=== PATIENT | male | born 1950 | race Caucasian/White ===

== ENCOUNTER 2017-05-30 20:20 | Inpatient (IN) | payer MEDICARE ==
[2017-05-30] MEDS: methylPREDNISolone Sodium Succinate 125 MG/2 ML SDV IVPUSH ONE ×2 (20:20→22:28)
[2017-05-30] MEDS: Albuterol/Ipratropium 3.0-0.5 MG/3 ML Neb Soln NEB SCH ×2 (20:20→22:28)
[2017-05-30] MEDS: Sodium Chloride 0.9% 1,000 ML IV ONE ×2 (20:20→22:29)
[2017-05-30] MEDS ORDERED: Albuterol 0.083% 2.5 MG/3 ML Neb Soln NEB PRN (20:28)
--- NOTE | 2017-05-30 20:34 | EDM.PDOC ---
ED HPI GENERAL MEDICAL PROBLEM - General Chief Complaint: Respiratory Problem Stated Complaint: shortness of breath Time Seen by Provider: 05/30/17 20:20 Source of Information: Reports: Patient, RN History Limitations: Reports: Respiratory Distress - History of Present Illness INITIAL COMMENTS - FREE TEXT/NARRATIVE: 67 yr male presents with shortness of breath. 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 - Related Data Allergies Allergy/AdvReac Type Severity Reaction Status Date / Time No Known Allergies Allergy Verified 05/30/17 22:28 Home Meds: Home Meds Aspirin [Halfprin] 81 mg PO DAILY 05/30/17 [History] Benazepril/Hydrochlorothiazide [Benazepril-HCTZ 20-12.5 MG Tablet] 1 tab PO BID 05/30/17 [History] Bosentan [Tracleer] 125 mg PO BID 05/30/17 [History] Glimepiride [Amaryl] 1 mg PO BID 05/30/17 [History] Iloprost Tromethamine [Ventavis] 1 ampule INH 6XDAY 05/30/17 [History] Metoprolol Tartrate [Lopressor] 50 mg PO BID 05/30/17 [History] Sildenafil [Revatio] 20 mg PO TID 05/30/17 [History] Simvastatin [Zocor] 40 mg PO DAILY 05/30/17 [History] Warfarin [Coumadin] 2.5 mg PO DAILY 05/30/17 [History] amLODIPine [Norvasc] 10 mg PO DAILY 05/30/17 [History] metFORMIN [Glucophage] 1,000 mg PO DAILY 05/30/17 [History] metFORMIN [Glucophage] 500 mg PO 1200 05/30/17 [History] ED ROS GENERAL - Review of Systems Review Of Systems: See Below Constitutional: Reports: Weakness HEENT: Reports: No Symptoms Respiratory: Reports: Shortness of Breath Cardiovascular: Reports: Dyspnea on Exertion GI/Abdominal: Reports: No Symptoms Musculoskeletal: Reports: No Symptoms Neurological: Reports: Trouble Speaking, Difficulty Walking Psychiatric: Reports: Anxiety ED EXAM, GENERAL - Physical Exam Exam: See Below Exam Limited By: Respiratory Distress General Appearance: Alert, Severe Distress Nose: Normal Inspection Throat/Mouth: Normal Lips Head: Atraumatic Neck: Supple, Non-Tender Respiratory/Chest: Respiratory Distress, Decreased Breath Sounds, Crackles Cardiovascular: Normal Peripheral Pulses, No Edema Peripheral Pulses: 2+: Dorsalis Pedis (L), Dorsalis Pedis (R) GI/Abdominal: Soft, Non-Tender Back Exam: Normal Inspection Extremities: Normal Inspection, No Pedal Edema, Normal Capillary Refill Neurological: Alert Skin Exam: Warm, Dry Lymphatic: No Adenopathy Course - Vital Signs Last Recorded V/S: Last Vital Signs Temp 97.9 F 05/31/17 06:12 Pulse 74 05/31/17 08:28 Resp 21 H 05/31/17 06:12 BP 151/75 H 05/31/17 08:30 Pulse Ox 99 05/31/17 06:12 - Orders/Labs/Meds Orders: Active Orders 24 hr Category Date Time Status CULTURE BLOOD [BC] Urgent Lab 05/30/17 20:30 Received Albuterol [Proventil Neb Soln] Med 05/30/17 20:28 Active 2.5 mg NEB Q2H PRN Resuscitation Status Routine Resus Stat 05/30/17 20:25 Ordered Medication Orders Albuterol (Proventil Neb Soln) 2.5 mg NEB Q2H PRN PRN Reason: Shortness of Breath Last Admin: 05/30/17 20:45 Dose: 2.5 mg Albuterol/Ipratropium (Duoneb 3.0-0.5 Mg/3 Ml) 3 ml NEB Q4H PRN PRN Reason: Dyspnea Amlodipine Besylate (Norvasc) 10 mg PO DAILY [facility] Last Admin: 05/31/17 08:30 Dose: 10 mg Aspirin (Halfprin) 81 mg PO DAILY [facility] Last Admin: 05/31/17 08:28 Dose: 81 mg Benazepril HCl (Lotensin) 20 mg PO BID [facility] Last Admin: 05/31/17 08:29 Dose: 20 mg Glimepiride (Glimepiride) 1 mg PO BIDMEALS [facility] Last Admin: 05/31/17 08:28 Dose: 1 mg Hydrochlorothiazide (Hydrochlorothiazide) 12.5 mg PO BID [facility] Last Admin: 05/31/17 08:27 Dose: 12.5 mg Sodium Chloride (Normal Saline) 1,000 mls @ 125 mls/hr IV ASDIRECTED [facility] Last Admin: 05/31/17 06:05 Dose: 125 mls/hr Levofloxacin/Dextrose (Levaquin In D5w 250 Mg/50 Ml) 50 mls @ 50 mls/hr IV DAILY [facility] Metformin HCl (Glucophage) 500 mg PO 1200 [facility] Metformin HCl (Glucophage) 1,000 mg PO DAILY [facility] Last Admin: 05/31/17 08:28 Dose: 1,000 mg Methylprednisolone Sodium Succinate (Solu-Medrol) 60 mg IVPUSH Q6H [facility] Last Admin: 05/31/17 04:25 Dose: 60 mg Metoprolol Tartrate (Lopressor) 50 mg PO BID [facility] Last Admin: 05/31/17 08:28 Dose: 50 mg Non-Formulary Medication (Bosentan [Tracleer]) 125 mg PO BID [facility] Last Admin: 05/31/17 08:48 Dose: 125 mg (Iloprost Tromethamine [ Ventavis] 1 Ampule) 1 ampule INH 07,10,13,16,19,22 [facility] Last Admin: 05/31/17 08:51 Dose: 1 ampule Sildenafil Citrate (Revatio) 20 mg PO TID [facility] Last Admin: 05/31/17 08:47 Dose: 20 mg Simvastatin (Zocor) 40 mg PO BEDTIME [facility] Sodium Chloride (Saline Flush) 10 ml FLUSH BID [facility] Last Admin: 05/31/17 08:43 Dose: Not Given Warfarin Sodium (Coumadin) 2.5 mg PO 1800 [facility] Labs: Laboratory Tests 05/30/17 05/30/17 05/30/17 Range/Units 20:30 20:30 20:54 WBC 17.1 H D (4.0-11.0) K/uL RBC 4.46 L (4.50-6.50) M/uL Hgb 14.8 (13.0-18.0) g/dL Hct 43.8 (40.0-54.0) % MCV 90 (76-96) fL MCH 30.5 (27.0-32.0) pg MCHC 33.8 (31.0-35.0) g/dL RDW 14.6 (11.0-16.0) % Plt Count 237 D (150-400) K/uL MPV 9.7 (6.0-10.0) fL Neut % (Auto) 89.7 H (45.0-70.0) % Lymph % (Auto) 5.0 L (20.0-40.0) % [place] % (Auto) 4.0 (3.0-10.0) % Eos % (Auto) 0.9 L (1.0-5.0) % Baso % (Auto) 0.4 (0.0-0.5) % Neut # (Auto) 15.38 H (2.00-7.50) K/uL Lymph # (Auto) 0.85 L (1.50-4.00) K/uL [place] # (Auto) 0.69 (0.20-0.80) K/uL Eos # (Auto) 0.16 (0.04-0.40) K/uL Baso # (Auto) 0.06 (0.02-0.10) K/uL Sodium 140 (136-145) mmol/L Potassium 4.6 (3.5-5.1) mmol/L Chloride 105 (98-107) mmol/L Carbon Dioxide 21.9 D (21.0-32.0) mmol/L Anion Gap 17.7 H (5.0-15.0) mmol/L BUN 24 (8-26) mg/dL Creatinine 1.49 H (0.70-1.30) mg/dL Est Cr Clr Drug Dosing TNP Estimated GFR (MDRD) 47 L (>60) MLS/MIN BUN/Creatinine Ratio 16.1 (6-25) Glucose 172 H D (74-100) mg/dL Calcium 9.0 (8.5-10.1) mg/dL Total Bilirubin 0.4 D (0.0-1.0) mg/dL AST 12 L (15-37) U/L ALT 17 (12-78) U/L Alkaline Phosphatase 69 (46-116) U/L B-Natriuretic Peptide 153 H (0-125) pg/mL Total Protein 7.4 (6.4-8.2) g/dL Albumin 4.0 (3.4-5.0) g/dL Globulin 3.4 (2.2-4.2) g/dL Albumin/Globulin Ratio 1.2 (0.8-2.0) Meds: Medications Generic Name Dose Route Start Last Admin Trade Name Freq PRN Reason Stop Dose Admin Albuterol 2.5 mg 05/30/17 20:28 05/30/17 20:45 Proventil Neb Soln NEB 2.5 mg Q2H PRN Administration Shortness of Breath Albuterol/Ipratropium 3 ml 05/31/17 05:23 Duoneb 3.0-0.5 Mg/3 Ml NEB Q4H PRN Dyspnea Amlodipine Besylate 10 mg 05/31/17 08:00 05/31/17 08:30 Norvasc PO 10 mg DAILY [facility] Administration Aspirin 81 mg 05/31/17 08:00 05/31/17 08:28 Halfprin PO 81 mg DAILY [facility] Administration Benazepril HCl 20 mg 05/31/17 08:00 05/31/17 08:29 Lotensin PO 20 mg BID [facility] Administration Glimepiride 1 mg 05/31/17 08:00 05/31/17 08:28 Glimepiride PO 1 mg BIDMEALS [facility] Administration Hydrochlorothiazide 12.5 mg 05/31/17 08:00 05/31/17 08:27 Hydrochlorothiazide PO 12.5 mg BID [facility] Administration Sodium Chloride 1,000 mls @ 125 mls/hr 05/31/17 05:00 05/31/17 06:05 Normal Saline IV 125 mls/hr ASDIRECTED [facility] Administration Levofloxacin/Dextrose 50 mls @ 50 mls/hr 06/01/17 08:00 Levaquin In D5w 250 Mg/50 Ml IV DAILY [facility] Metformin HCl 500 mg 05/31/17 12:00 Glucophage PO 1200 [facility] Metformin HCl 1,000 mg 05/31/17 08:00 05/31/17 08:28 Glucophage PO 1,000 mg DAILY [facility] Administration Methylprednisolone Sodium Succinate 60 mg 05/31/17 04:00 05/31/17 04:25 Solu-Medrol IVPUSH 60 mg Q6H [facility] Administration Metoprolol Tartrate 50 mg 05/31/17 08:00 05/31/17 08:28 Lopressor PO 50 mg BID [facility] Administration Non-Formulary Medication 125 mg 05/31/17 08:00 05/31/17 08:48 Bosentan [Tracleer] PO 125 mg BID [facility] Administration (Iloprost 1 ampule 05/31/17 07:00 05/31/17 08:51 Tromethamine [ INH 1 ampule Ventavis] 1 Ampule) 07,10,13,16,19,22 [facility] Administration Sildenafil Citrate 20 mg 05/31/17 08:00 05/31/17 08:47 Revatio PO 20 mg TID [facility] Administration Simvastatin 40 mg 05/31/17 20:00 Zocor PO BEDTIME [facility] Sodium Chloride 10 ml 05/31/17 08:00 05/31/17 08:43 Saline Flush FLUSH Not Given BID [facility] Warfarin Sodium 2.5 mg 05/31/17 18:00 Coumadin PO 1800 [facility] Discontinued Medications Generic Name Dose Route Start Last Admin Trade Name Freq PRN Reason Stop Dose Admin Albuterol/Ipratropium 3 ml 05/30/17 21:30 05/31/17 05:23 Duoneb 3.0-0.5 Mg/3 Ml NEB Not Given Q4H [facility] Sodium Chloride 1,000 mls @ 125 mls/hr 05/30/17 20:25 05/30/17 22:29 Normal Saline IV 05/31/17 04:24 Not Given ASDIRECTED ONE Levofloxacin 500 mg/ Dextrose/ 120 mls @ 220 mls/hr 05/30/17 21:00 05/30/17 22:29 Water IV Not Given DAILY [facility] Levofloxacin 750 mg/ Dextrose/ 130 mls @ 220 mls/hr 05/31/17 08:00 05/31/17 07:13 Water IV 220 mls/hr DAILY [facility] Administration Levofloxacin/Dextrose Confirm 05/31/17 05:57 05/31/17 06:21 Levaquin In D5w 750 Mg/150 Ml Administered 05/31/17 05:58 Not Given Dose 150 mls @ as directed IV .STK-MED ONE Methylprednisolone Sodium Succinate 125 mg 05/30/17 20:28 05/30/17 22:28 Solu-Medrol IVPUSH 05/30/17 20:29 Not Given ONETIME ONE Non-Formulary Medication 1 tab 05/31/17 08:00 Benazepril/Hydrochlorothiazide [Benazepril-Hctz 20-12.5 Mg] PO BID [facility] Departure - Departure Time of Disposition: 22:15 Disposition: Admitted As Inpatient 68 Condition: Fair Clinical Impression: Shortness of breath, Pneumonia - Discharge Information - Problem List & Annotations (1) Shortness of breath SNOMED Code(s): 311088304 Code(s): R06.02 - SHORTNESS OF BREATH Status: Acute Current Visit: Yes (2) Pneumonia SNOMED Code(s): 812203630 Code(s): J18.9 - PNEUMONIA, UNSPECIFIED ORGANISM Status: Acute Current Visit: Yes Onset Date: ~05/30/17 Qualifiers: Laterality: bilateral - Problem List Review Problem List Initiated/Reviewed/Updated: Yes - My Orders Last 24 Hours: My Active Orders 05/30/17 20:25 Resuscitation Status Routine 05/30/17 20:28 Albuterol [Proventil Neb Soln] 2.5 mg NEB Q2H PRN 05/30/17 20:30 CULTURE BLOOD [BC] Urgent - Assessment/Plan Last 24 Hours: My Active Orders 05/30/17 20:25 Resuscitation Status Routine 05/30/17 20:28 Albuterol [Proventil Neb Soln] 2.5 mg NEB Q2H PRN 05/30/17 20:30 CULTURE BLOOD [BC] Urgent Assessment:: Shortness of breath: Pneumonia: Pulmonary artery hypertension: Plan: Shortness of breath: Duoneb and Albuterol neb as ordered Solu-Medrol IV as ordered traffic monitor specialist IV Nacl at 125cc/hr Levofloxacin IV as ordered. Oxygen as ordered. Labs and chest x-ray as ordered. 22:15 05-30-17 Pneumonia: Admit CCU, laboratory monitor, Oxygen Levofloxacin IV Solu-medrol IV Duoneb neb every 4-6 hr prn Medications as at home CBC, BMP in am. VS as ordered I/O Daily weight. Pulmonary artery hypertension: Continue home medications: Ventavis neb, Tracleer,a nd Sildenafil Continue CPAP as at home during hs.
[2017-05-30] MEDS: WATER IV SCH ×4 (20:38→22:29)
[2017-05-30] MEDS: LEVOFLOXACIN IV SCH ×4 (20:38→22:29)
[2017-05-30] MEDS: DEXTROSE 5% IV SCH ×4 (20:38→22:29)
[2017-05-31] MEDS: Albuterol/Ipratropium 3.0-0.5 MG/3 ML Neb Soln NEB SCH ×2 (01:48→05:23)
[2017-05-31] MEDS: methylPREDNISolone Sodium Succinate 40 MG/1 ML SDV IVPUSH SCH ×4 (04:25→22:19)
[2017-05-31] MEDS ORDERED: Albuterol/Ipratropium 3.0-0.5 MG/3 ML Neb Soln NEB PRN (05:23)
[2017-05-31] MEDS ORDERED: Levofloxacin/Dextrose 5%-Water 150 ML IV ONE (05:57)
[2017-05-31] MEDS: Sodium Chloride 0.9% 1,000 ML IV SCH ×2 (06:05→16:59)
[2017-05-31] MEDS ORDERED: DEXTROSE 5% IV SCH ×2 (08:00)
[2017-05-31] MEDS ORDERED: LEVOFLOXACIN IV SCH ×2 (08:00)
[2017-05-31] MEDS ORDERED: WATER IV SCH ×2 (08:00)
[2017-05-31] MEDS: Hydrochlorothiazide 12.5 MG Cap PO SCH ×2 (08:27→20:14)
[2017-05-31] MEDS: Aspirin 81 MG Tab.EC PO SCH (08:28)
[2017-05-31] MEDS: metFORMIN 500 MG Tab PO SCH ×2 (08:28→12:25)
[2017-05-31] MEDS: Metoprolol Tartrate 50 MG Tab PO SCH ×2 (08:28→20:15)
[2017-05-31] MEDS: Glimepiride 4 MG Tab PO SCH ×2 (08:28→16:50)
[2017-05-31] MEDS: Benazepril 10 MG Tab PO SCH ×2 (08:29→20:19)
[2017-05-31] MEDS: amLODIPine 10 MG Tab PO SCH (08:30)
[2017-05-31] MEDS: Sodium Chloride 0.9% 10 ML Syringe FLUSH SCH ×2 (08:43→20:46)
--- NOTE | 2017-05-31 08:43 | CR ---
DATE OF SERVICE: 05/30/17 CLINICAL DATA: Shortness of breath AP PORTABLE CHEST: Comparison is made to a prior exam dated 10/08/15. The patient has taken a poor inspiration. The heart is mildly enlarged. The pulmonary vasculature appears prominent, suggesting pulmonary venous congestion or fluid overload. There are interstitial infiltrates throughout both lungs, consistent with pulmonary edema or interstitial pneumonia. Again fluid overload or congestive failure should be considered. There are densities in both lower lungs, consistent with infiltrate or infiltrate. Pneumonia should be considered. The exam is otherwise unchanged from the prior. No pneumothorax. [id number] [facility]
[2017-05-31] MEDS: Sildenafil 20 MG Tab PO SCH ×3 (08:47→20:19)
[2017-05-31] MEDS: BOSENTAN 125 MG PO SCH ×2 (08:48→20:13)
--- NOTE | 2017-05-31 10:42 | PCM.PN ---
- General Info Date of Service: 05/31/17 Admission Dx/Problem (Free Text): pneumonia: Functional Status: Reports: Urinating - Review of Systems General: Reports: No Symptoms Pulmonary: Reports: No Symptoms, Other (shortness of breath improved, CPAP on now) Cardiovascular: Reports: No Symptoms Gastrointestinal: Reports: No Symptoms Neurological: Reports: No Symptoms Psychiatric: Reports: No Symptoms - Patient Data Vitals - Most Recent: Last Vital Signs Temp 97.9 F 05/31/17 06:12 Pulse 74 05/31/17 08:28 Resp 21 H 05/31/17 06:12 BP 151/75 H 05/31/17 08:30 Pulse Ox 99 05/31/17 06:12 I&O - Last 24 Hours: Intake & Output 05/30/17 05/31/17 05/31/17 22:59 06:59 14:59 Intake Total 1174 Output Total 425 Balance 749 Lab Results Last 24 Hours: Laboratory Results - last 24 hr 05/31/17 05/31/17 05/31/17 Range/Units 07:50 07:50 07:50 WBC 10.9 D (4.0-11.0) K/uL RBC 4.05 L (4.50-6.50) M/uL Hgb 12.4 L (13.0-18.0) g/dL Hct 36.5 L (40.0-54.0) % MCV 90 (76-96) fL MCH 30.6 (27.0-32.0) pg MCHC 34.0 (31.0-35.0) g/dL RDW 14.2 (11.0-16.0) % Plt Count 190 (150-400) K/uL MPV 9.9 (6.0-10.0) fL Neut % (Auto) 95.2 H (45.0-70.0) % Lymph % (Auto) 4.1 L (20.0-40.0) % [place] % (Auto) 0.7 L (3.0-10.0) % Eos % (Auto) 0.0 L (1.0-5.0) % Baso % (Auto) 0.0 (0.0-0.5) % Neut # (Auto) 10.34 H (2.00-7.50) K/uL Lymph # (Auto) 0.44 L (1.50-4.00) K/uL [place] # (Auto) 0.08 L (0.20-0.80) K/uL Eos # (Auto) 0.00 L (0.04-0.40) K/uL Baso # (Auto) 0.00 L (0.02-0.10) K/uL PT 20.1 H (9.0-11.5) sec INR 2.1 D (1.0-3.5) Sodium 138 (136-145) mmol/L Potassium 4.7 (3.5-5.1) mmol/L Chloride 105 (98-107) mmol/L Carbon Dioxide 20.8 L (21.0-32.0) mmol/L Anion Gap 16.9 H (5.0-15.0) mmol/L BUN 24 (8-26) mg/dL Creatinine 1.38 H (0.70-1.30) mg/dL Est Cr Clr Drug Dosing TNP Estimated GFR (MDRD) 52 L (>60) MLS/MIN BUN/Creatinine Ratio 17.4 (6-25) Glucose 242 H D (74-100) mg/dL Calcium 8.4 L (8.5-10.1) mg/dL Med Orders - Current: Current Medications Albuterol (Proventil Neb Soln) 2.5 mg NEB Q2H PRN PRN Reason: Shortness of Breath Last Admin: 05/30/17 20:45 Dose: 2.5 mg Albuterol/Ipratropium (Duoneb 3.0-0.5 Mg/3 Ml) 3 ml NEB Q4H PRN PRN Reason: Dyspnea Amlodipine Besylate (Norvasc) 10 mg PO DAILY [facility] Last Admin: 05/31/17 08:30 Dose: 10 mg Aspirin (Halfprin) 81 mg PO DAILY [facility] Last Admin: 05/31/17 08:28 Dose: 81 mg Benazepril HCl (Lotensin) 20 mg PO BID [facility] Last Admin: 05/31/17 08:29 Dose: 20 mg Glimepiride (Glimepiride) 1 mg PO BIDMEALS [facility] Last Admin: 05/31/17 08:28 Dose: 1 mg Hydrochlorothiazide (Hydrochlorothiazide) 12.5 mg PO BID [facility] Last Admin: 05/31/17 08:27 Dose: 12.5 mg Sodium Chloride (Normal Saline) 1,000 mls @ 50 mls/hr IV ASDIRECTED [facility] Last Admin: 05/31/17 06:05 Dose: 125 mls/hr Levofloxacin/Dextrose (Levaquin In D5w 250 Mg/50 Ml) 50 mls @ 50 mls/hr IV DAILY [facility] Metformin HCl (Glucophage) 500 mg PO 1200 [facility] Metformin HCl (Glucophage) 1,000 mg PO DAILY [facility] Last Admin: 05/31/17 08:28 Dose: 1,000 mg Methylprednisolone Sodium Succinate (Solu-Medrol) 60 mg IVPUSH Q6H [facility] Stop: 06/01/17 06:00 Last Admin: 05/31/17 04:25 Dose: 60 mg Metoprolol Tartrate (Lopressor) 50 mg PO BID [facility] Last Admin: 05/31/17 08:28 Dose: 50 mg Non-Formulary Medication (Bosentan [Tracleer]) 125 mg PO BID [facility] Last Admin: 05/31/17 08:48 Dose: 125 mg (Iloprost Tromethamine [ Ventavis] 1 Ampule) 1 ampule INH 07,10,13,16,19,22 [facility] Last Admin: 05/31/17 08:51 Dose: 1 ampule Prednisone (Prednisone) 60 mg PO .Daily Taper [facility] Sildenafil Citrate (Revatio) 20 mg PO TID [facility] Last Admin: 05/31/17 08:47 Dose: 20 mg Simvastatin (Zocor) 40 mg PO BEDTIME [facility] Sodium Chloride (Saline Flush) 10 ml FLUSH BID [facility] Last Admin: 05/31/17 08:43 Dose: Not Given Warfarin Sodium (Coumadin) 2.5 mg PO 1800 [facility] Discontinued Medications Albuterol/Ipratropium (Duoneb 3.0-0.5 Mg/3 Ml) 3 ml NEB Q4H [facility] Last Admin: 05/31/17 05:23 Dose: Not Given Sodium Chloride (Normal Saline) 1,000 mls @ 125 mls/hr IV ASDIRECTED ONE Stop: 05/31/17 04:24 Last Admin: 05/30/17 22:29 Dose: Not Given Levofloxacin 500 mg/ Dextrose/ (Water) 120 mls @ 220 mls/hr IV DAILY [facility] Last Admin: 05/30/17 22:29 Dose: Not Given Levofloxacin 750 mg/ Dextrose/ (Water) 130 mls @ 220 mls/hr IV DAILY [facility] Last Admin: 05/31/17 07:13 Dose: 220 mls/hr Levofloxacin/Dextrose (Levaquin In D5w 750 Mg/150 Ml) Confirm Administered Dose 150 mls @ as directed IV .STK-MED ONE Stop: 05/31/17 05:58 Last Admin: 05/31/17 06:21 Dose: Not Given Methylprednisolone Sodium Succinate (Solu-Medrol) 125 mg IVPUSH ONETIME ONE Stop: 05/30/17 20:29 Last Admin: 05/30/17 22:28 Dose: Not Given Non-Formulary Medication (Benazepril/Hydrochlorothiazide [Benazepril-Hctz 20- 12.5 Mg]) 1 tab PO BID [facility] - Exam Quality Assessment: Supplemental Oxygen, DVT Prophylaxis General: Alert, Oriented, No Acute Distress HEENT: Mucous Membr. Moist/[place] Neck: Supple Lungs: Clear to Auscultation, Normal Respiratory Effort Cardiovascular: Regular Rate, Regular Rhythm GI/Abdominal Exam: Soft, Non-Tender Extremities: No Pedal Edema Skin: Warm, Dry Psy/Mental Status: Alert - Problem List & Annotations (1) Shortness of breath SNOMED Code(s): 554456645 Code(s): R06.02 - SHORTNESS OF BREATH Status: Acute Current Visit: Yes (2) Pneumonia SNOMED Code(s): 732340065 Code(s): J18.9 - PNEUMONIA, UNSPECIFIED ORGANISM Status: Acute Current Visit: Yes Onset Date: ~05/30/17 Qualifiers: Laterality: bilateral - Problem List Review Problem List Initiated/Reviewed/Updated: Yes - My Orders Last 24 Hours: My Active Orders 05/31/17 04:00 methylPREDNISolone Sod Succ [Solu-MEDROL] 60 mg IVPUSH Q6H 05/31/17 05:00 Sodium Chloride 0.9% [Normal Saline] 1,000 ml IV ASDIRECTED 05/31/17 05:23 Albuterol/Ipratropium [DuoNeb 3.0-0.5 MG/3 ML] 3 ml NEB Q4H PRN 05/31/17 05:24 RT Aerosol Therapy [RC] ASDIRECTED 05/31/17 07:00 Iloprost Tromethamine [Ventavis] 1 ampule INH 07,10,13,16,19,22 05/31/17 08:00 CULTURE MRSA SURVEY [RM] Routine Aspirin [Halfprin] 81 mg PO DAILY Benazepril [Lotensin] 20 mg PO BID Bosentan [Tracleer] 125 mg PO BID Glimepiride 1 mg PO BIDMEALS Hydrochlorothiazide 12.5 mg PO BID Metoprolol Tartrate [Lopressor] 50 mg PO BID Sildenafil [Revatio] 20 mg PO TID Sodium Chloride 0.9% [Saline Flush] 10 ml FLUSH BID amLODIPine [Norvasc] 10 mg PO DAILY metFORMIN [Glucophage] 1,000 mg PO DAILY 05/31/17 10:28 Telemetry Monitoring [Cardiac Monitoring] [RC] .As Directed 05/31/17 12:00 metFORMIN [Glucophage] 500 mg PO 1200 05/31/17 18:00 Warfarin [Coumadin] 2.5 mg PO 1800 05/31/17 20:00 Simvastatin [Zocor] 40 mg PO BEDTIME 05/31/17 Breakfast Consistent Carbohydrate Diet [DIET] 06/01/17 07:30 BASIC METABOLIC PANEL,BMP [CHEM] Routine CBC WITH AUTO DIFF [HEME] Routine 06/01/17 08:00 Levofloxacin/Dextrose 5%-Water [Levaquin in D5W 250 MG/50 ML] 50 ml IV DAILY predniSONE 60 mg PO .Daily Taper - Assessment Assessment:: pneumonia: - Plan Plan:: Review of labs today show improved WBC, Increase is glucose with use of gluccocorticoid. Will start sliding scale today. Shortness of breath is improved and increase in lung sounds noted. Transfer out of CCU today, decrease IV rate, continue IV Levofloxacin, increase in light activity in room as tolerated. pneumonia: Transfer out of CCU today. Telemetry D'cd IV rate to 50cc/hr Continue daily Levofloxacin IV D/C Solu-Medrol after todays 60 mg IV doses Start Prednisone taper in am Incentive spirometry Nebulizers as at home CBC and BMP in am. Continue with CPAP at hs. Diabetes: BS ac and hs Sliding scale insulin. Continue PO medications.
[2017-05-31] MEDS: Insulin Regular, Human 100 Units/ML 3 ML Vial SUBCUT SCH ×3 (12:22→20:39)
[2017-05-31] MEDS ORDERED: Warfarin 5 MG Tab PO SCH (18:00)
[2017-05-31] MEDS ORDERED: Warfarin 2.5 MG Tab PO SCH (18:00)
[2017-05-31] MEDS: Simvastatin 40 MG Tab PO SCH (20:14)
[2017-06-01] MEDS: methylPREDNISolone Sodium Succinate 40 MG/1 ML SDV IVPUSH SCH (04:15)
[2017-06-01] MEDS ORDERED: Levofloxacin/Dextrose 5%-Water 50 ML IV SCH (08:00)
[2017-06-01] MEDS: BOSENTAN 125 MG PO SCH ×2 (08:19→20:14)
[2017-06-01] MEDS: Glimepiride 4 MG Tab PO SCH ×2 (08:20→18:00)
[2017-06-01] MEDS: metFORMIN 500 MG Tab PO SCH ×2 (08:22→12:00)
[2017-06-01] MEDS: Aspirin 81 MG Tab.EC PO SCH (08:23)
[2017-06-01] MEDS: Hydrochlorothiazide 12.5 MG Cap PO SCH ×2 (08:24→20:11)
[2017-06-01] MEDS: Metoprolol Tartrate 50 MG Tab PO SCH ×2 (08:25→20:10)
[2017-06-01] MEDS: Benazepril 10 MG Tab PO SCH ×2 (08:25→20:14)
[2017-06-01] MEDS: amLODIPine 10 MG Tab PO SCH (08:26)
[2017-06-01] MEDS: Sildenafil 20 MG Tab PO SCH ×3 (08:27→20:15)
[2017-06-01] MEDS: Sodium Chloride 0.9% 10 ML Syringe FLUSH SCH ×2 (08:27→20:12)
[2017-06-01] MEDS: predniSONE 10 MG Tab PO SCH (08:35)
[2017-06-01] MEDS ORDERED: Furosemide 40 MG/4 ML VIAL IVPUSH ONE (08:46)
[2017-06-01] MEDS ORDERED: cefTRIAXone 1 GM in Sodium Chloride 0.9% 50 ML IV SCH (09:00)
[2017-06-01] MEDS ORDERED: Sodium Chloride 0.9% 10 ML Syringe FLUSH PRN (09:22)
--- NOTE | 2017-06-01 09:31 | PCM.PN ---
- General Info Date of Service: 06/01/17 Admission Dx/Problem (Free Text): pneumonia: Subjective Update: Feeling better today and breathing easier Functional Status: Reports: Tolerating Diet, Ambulating - Review of Systems General: Reports: No Symptoms HEENT: Reports: No Symptoms Pulmonary: Reports: Cough Cardiovascular: Reports: No Symptoms Gastrointestinal: Reports: No Symptoms Genitourinary: Reports: No Symptoms Musculoskeletal: Reports: No Symptoms Skin: Reports: No Symptoms Neurological: Reports: No Symptoms Psychiatric: Reports: No Symptoms - Patient Data Vitals - Most Recent: Last Vital Signs Temp 98.5 F 06/01/17 04:23 Pulse 63 06/01/17 08:25 Resp 20 06/01/17 04:23 BP 147/77 H 06/01/17 08:25 Pulse Ox 93 L 06/01/17 06:00 Weight - Most Recent: 225 lb I&O - Last 24 Hours: Intake & Output 05/31/17 06/01/17 06/01/17 22:59 06:59 14:59 Intake Total 1800 600 Output Total 1600 500 Balance 200 100 Lab Results Last 24 Hours: Laboratory Results - last 24 hr 05/31/17 05/31/17 05/31/17 Range/Units 11:19 16:09 19:09 WBC (4.0-11.0) K/uL RBC (4.50-6.50) M/uL Hgb (13.0-18.0) g/dL Hct (40.0-54.0) % MCV (76-96) fL MCH (27.0-32.0) pg MCHC (31.0-35.0) g/dL RDW (11.0-16.0) % Plt Count (150-400) K/uL MPV (6.0-10.0) fL Neut % (Auto) (45.0-70.0) % Lymph % (Auto) (20.0-40.0) % [place] % (Auto) (3.0-10.0) % Eos % (Auto) (1.0-5.0) % Baso % (Auto) (0.0-0.5) % Neut # (Auto) (2.00-7.50) K/uL Lymph # (Auto) (1.50-4.00) K/uL Reagan # (Auto) (0.20-0.80) K/uL Eos # (Auto) (0.04-0.40) K/uL Baso # (Auto) (0.02-0.10) K/uL PT (9.0-11.5) sec INR (1.0-3.5) Sodium (136-145) mmol/L Potassium (3.5-5.1) mmol/L Chloride (98-107) mmol/L Carbon Dioxide (21.0-32.0) mmol/L Anion Gap (5.0-15.0) mmol/L BUN (8-26) mg/dL Creatinine (0.70-1.30) mg/dL Est Cr Clr Drug Dosing mL/min Estimated GFR (MDRD) (>60) MLS/MIN BUN/Creatinine Ratio (6-25) Glucose (74-100) mg/dL POC Glucose 137 H 132 H 236 H (74-110) mg/dL Calcium (8.5-10.1) mg/dL 06/01/17 06/01/17 06/01/17 Range/Units 07:05 07:10 07:10 WBC 16.7 H D (4.0-11.0) K/uL RBC 3.90 L (4.50-6.50) M/uL Hgb 12.0 L (13.0-18.0) g/dL Hct 35.5 L (40.0-54.0) % MCV 91 (76-96) fL MCH 30.8 (27.0-32.0) pg MCHC 33.8 (31.0-35.0) g/dL RDW 14.3 (11.0-16.0) % Plt Count 190 (150-400) K/uL MPV 10.4 H (6.0-10.0) fL Neut % (Auto) 93.1 H (45.0-70.0) % Lymph % (Auto) 3.2 L (20.0-40.0) % [place] % (Auto) 3.6 (3.0-10.0) % Eos % (Auto) 0.0 L (1.0-5.0) % Baso % (Auto) 0.1 (0.0-0.5) % Neut # (Auto) 15.55 H (2.00-7.50) K/uL Lymph # (Auto) 0.54 L (1.50-4.00) K/uL Reagan # (Auto) 0.60 (0.20-0.80) K/uL Eos # (Auto) 0.00 L (0.04-0.40) K/uL Baso # (Auto) 0.01 L (0.02-0.10) K/uL PT 23.7 H (9.0-11.5) sec INR 2.5 (1.0-3.5) Sodium 138 (136-145) mmol/L Potassium 4.4 (3.5-5.1) mmol/L Chloride 106 (98-107) mmol/L Carbon Dioxide 23.9 (21.0-32.0) mmol/L Anion Gap 12.5 (5.0-15.0) mmol/L BUN 26 (8-26) mg/dL Creatinine 1.26 (0.70-1.30) mg/dL Est Cr Clr Drug Dosing 50.84 mL/min Estimated GFR (MDRD) 57 L (>60) MLS/MIN BUN/Creatinine Ratio 20.6 (6-25) Glucose 192 H (74-100) mg/dL POC Glucose (74-110) mg/dL Calcium 8.5 (8.5-10.1) mg/dL Med Orders - Current: Current Medications Albuterol (Proventil Neb Soln) 2.5 mg NEB Q2H PRN PRN Reason: Shortness of Breath Last Admin: 05/30/17 20:45 Dose: 2.5 mg Albuterol/Ipratropium (Duoneb 3.0-0.5 Mg/3 Ml) 3 ml NEB Q4H PRN PRN Reason: Dyspnea Amlodipine Besylate (Norvasc) 10 mg PO DAILY [facility] Last Admin: 06/01/17 08:26 Dose: 10 mg Aspirin (Halfprin) 81 mg PO DAILY [facility] Last Admin: 06/01/17 08:23 Dose: 81 mg Benazepril HCl (Lotensin) 20 mg PO BID [facility] Last Admin: 06/01/17 08:25 Dose: 20 mg Glimepiride (Glimepiride) 1 mg PO BIDMEALS [facility] Last Admin: 06/01/17 08:20 Dose: 1 mg Hydrochlorothiazide (Hydrochlorothiazide) 12.5 mg PO BID [facility] Last Admin: 06/01/17 08:24 Dose: 12.5 mg Levofloxacin 500 mg/ Dextrose/ (Water) 120 mls @ 220 mls/hr IV DAILY [facility] Insulin Human Regular (Humulin R) 0 unit SUBCUT 0800,1200,1700,2000 [facility] PRN Reason: Protocol Metformin HCl (Glucophage) 500 mg PO 1200 [facility] Last Admin: 05/31/17 12:25 Dose: 500 mg Metformin HCl (Glucophage) 1,000 mg PO DAILY [facility] Last Admin: 06/01/17 08:22 Dose: 1,000 mg Metoprolol Tartrate (Lopressor) 50 mg PO BID [facility] Last Admin: 06/01/17 08:25 Dose: 50 mg Non-Formulary Medication (Bosentan [Tracleer]) 125 mg PO BID [facility] Last Admin: 06/01/17 08:19 Dose: 125 mg (Iloprost Tromethamine [ Ventavis] 1 Ampule) 1 ampule INH 07,10,13,16,19,22 [facility] Last Admin: 06/01/17 08:18 Dose: 1 ampule Prednisone (Prednisone) 60 mg PO .Daily Taper [facility] PRN Reason: Taper Stop: 06/08/17 07:59 Last Admin: 06/01/17 08:35 Dose: 60 mg Sildenafil Citrate (Revatio) 20 mg PO TID [facility] Last Admin: 06/01/17 08:27 Dose: 20 mg Simvastatin (Zocor) 40 mg PO BEDTIME [facility] Last Admin: 05/31/17 20:14 Dose: 40 mg Sodium Chloride (Saline Flush) 10 ml FLUSH BID [facility] Last Admin: 06/01/17 08:27 Dose: 10 ml Discontinued Medications Albuterol/Ipratropium (Duoneb 3.0-0.5 Mg/3 Ml) 3 ml NEB Q4H [facility] Last Admin: 05/31/17 05:23 Dose: Not Given Furosemide (Lasix) 20 mg IVPUSH NOW ONE Stop: 06/01/17 08:47 Sodium Chloride (Normal Saline) 1,000 mls @ 125 mls/hr IV ASDIRECTED ONE Stop: 05/31/17 04:24 Last Admin: 05/30/17 22:29 Dose: Not Given Levofloxacin 500 mg/ Dextrose/ (Water) 120 mls @ 220 mls/hr IV DAILY [facility] Last Admin: 05/30/17 22:29 Dose: Not Given Levofloxacin 750 mg/ Dextrose/ (Water) 130 mls @ 220 mls/hr IV DAILY [facility] Last Admin: 05/31/17 07:13 Dose: 220 mls/hr Levofloxacin/Dextrose (Levaquin In D5w 750 Mg/150 Ml) Confirm Administered Dose 150 mls @ as directed IV .STK-MED ONE Stop: 05/31/17 05:58 Last Admin: 05/31/17 06:21 Dose: Not Given Sodium Chloride (Normal Saline) 1,000 mls @ 50 mls/hr IV ASDIRECTED [facility] Last Admin: 05/31/17 16:59 Dose: 50 mls/hr Levofloxacin/Dextrose (Levaquin In D5w 250 Mg/50 Ml) 50 mls @ 50 mls/hr IV DAILY [facility] Ceftriaxone Sodium 1 gm/ (Sodium Chloride) 50 mls @ 100 mls/hr IV Q24H [facility] Insulin Human Regular (Humulin R) 0 unit SUBCUT QIDACANDBED [facility] PRN Reason: Protocol Last Admin: 05/31/17 20:39 Dose: 2 units Methylprednisolone Sodium Succinate (Solu-Medrol) 125 mg IVPUSH ONETIME ONE Stop: 05/30/17 20:29 Last Admin: 05/30/17 22:28 Dose: Not Given Methylprednisolone Sodium Succinate (Solu-Medrol) 60 mg IVPUSH Q6H [facility] Stop: 06/01/17 06:00 Last Admin: 06/01/17 04:15 Dose: 60 mg Non-Formulary Medication (Benazepril/Hydrochlorothiazide [Benazepril-Hctz 20- 12.5 Mg]) 1 tab PO BID [facility] Ranitidine HCl (Zantac) Confirm Administered Dose 150 mg .ROUTE .STK-MED ONE Stop: 05/31/17 20:25 Last Admin: 05/31/17 20:39 Dose: 150 mg Warfarin Sodium (Coumadin) 5 mg PO DAILY@1800 [facility] Stop: 05/31/17 23:59 Last Admin: 05/31/17 17:02 Dose: 5 mg - Exam Quality Assessment: Supplemental Oxygen General: Alert, Oriented HEENT: Mucous Membr. Moist/[place] Neck: Supple Lungs: Crackles (right base) Cardiovascular: Regular Rate, Regular Rhythm GI/Abdominal Exam: Soft, Non-Tender Back Exam: Normal Inspection Extremities: Normal Inspection, Normal Range of Motion. No: Pedal Edema Skin: Warm, Dry Psy/Mental Status: Alert, Normal Affect - Problem List & Annotations (1) Shortness of breath SNOMED Code(s): 237560177 Code(s): R06.02 - SHORTNESS OF BREATH Status: Acute Current Visit: Yes (2) Pneumonia SNOMED Code(s): 911143456 Code(s): J18.9 - PNEUMONIA, UNSPECIFIED ORGANISM Status: Acute Current Visit: Yes Onset Date: ~05/30/17 Qualifiers: Laterality: bilateral - Problem List Review Problem List Initiated/Reviewed/Updated: Yes - My Orders Last 24 Hours: My Active Orders 05/31/17 10:47 Blood Glucose Check, Bedside [RC] QIDACANDBED 05/31/17 12:00 metFORMIN [Glucophage] 500 mg PO 1200 05/31/17 20:00 Simvastatin [Zocor] 40 mg PO BEDTIME 06/01/17 08:00 Insulin Regular, Human [HumuLIN R] 0 unit SUBCUT 0800,1200,1700,2000 predniSONE 60 mg PO .Daily Taper 06/01/17 09:06 Chest 2V [CR] Routine 06/01/17 09:22 Sodium Chloride 0.9% [Saline Flush] 10 ml FLUSH ASDIRECTED PRN Saline Lock Insert [OM.PC] Routine 06/01/17 10:00 Levofloxacin [Levaquin] 500 mg Dextrose 5% in Water 100 ml IV DAILY - Assessment Assessment:: pneumonia: - Plan Plan:: Review of labs today show elevation in WBC, probably related to use of steroid, pt feeling better and sitting on edge of bed, eating breakfast and asking appropriate questions about medications. Increase is glucose with use of gluccocorticoid. Continue with sliding scale today. Shortness of breath is improved and increase in lung sounds noted. Fine crackles to right base. Will give lasix today and repeat chest x-ray. Saline lock, continue IV Levofloxacin, increase in light activity in room as tolerated. Consulted Dr Jiang for pt care today, review of lab results. Continue with levofloxaxin IV. Discussed changing antibiotic and no indication at this time. pneumonia: Repeat chest x-ray today Saline lock Continue daily Levofloxacin IV. With improved BMP, increase Levofloxacin to 500 mg Start Prednisone taper Incentive spirometry Nebulizers as at home CBC and BMP in am. Monitor CBC and BMP closely for response of antibiotic and response with renal dosing as needed Continue with CPAP at hs. Up in room today. Change to oral Levofloxacin tomorrow. Diabetes: BS ac and hs Sliding scale insulin. Continue PO medications.
[2017-06-01] MEDS ORDERED: WATER IV SCH ×2 (10:00)
[2017-06-01] MEDS ORDERED: LEVOFLOXACIN IV SCH ×2 (10:00)
[2017-06-01] MEDS ORDERED: DEXTROSE 5% IV SCH ×2 (10:00)
[2017-06-01] MEDS: Levofloxacin/Dextrose 5%-Water 100 ML IV SCH (10:18)
[2017-06-01] MEDS ORDERED: Warfarin 5 MG Tab PO SCH (11:12)
--- NOTE | 2017-06-01 14:26 | CR ---
DATE OF SERVICE: 06/01/17 CLINICAL DATA: pneumonia PA AND LATERAL CHEST Comparison is made to a prior exam dated 05/30/17. The heart size is stable. The pulmonary vascular congestion and interstitial edema on the prior exam have improved radiographically. The infiltrates in both lung bases on the prior exam have nearly completely resolved. There is a persistent small left pleural effusion. The right pleural effusion is nearly completely resolved. The exam is otherwise unchanged from the prior. No new abnormalities. [id number] [facility]
[2017-06-01] MEDS: Insulin Regular, Human 100 Units/ML 3 ML Vial SUBCUT SCH ×4 (18:50→22:31)
[2017-06-01] MEDS: Simvastatin 40 MG Tab PO SCH (20:11)
[2017-06-02] MEDS: BOSENTAN 125 MG PO SCH (07:48)
[2017-06-02] MEDS: metFORMIN 500 MG Tab PO SCH (07:49)
[2017-06-02] MEDS: Aspirin 81 MG Tab.EC PO SCH (07:49)
[2017-06-02] MEDS: Metoprolol Tartrate 50 MG Tab PO SCH (07:50)
[2017-06-02] MEDS: amLODIPine 10 MG Tab PO SCH (07:50)
[2017-06-02] MEDS: predniSONE 10 MG Tab PO SCH (07:50)
[2017-06-02] MEDS: Benazepril 10 MG Tab PO SCH (07:50)
[2017-06-02] MEDS: Hydrochlorothiazide 12.5 MG Cap PO SCH (07:51)
[2017-06-02] MEDS: Sildenafil 20 MG Tab PO SCH (07:52)
[2017-06-02] MEDS: Glimepiride 4 MG Tab PO SCH (07:53)
[2017-06-02] MEDS: Sodium Chloride 0.9% 10 ML Syringe FLUSH SCH (07:58)
[2017-06-02] MEDS: Insulin Regular, Human 100 Units/ML 3 ML Vial SUBCUT SCH (08:00)
[2017-06-02] MEDS: Levofloxacin/Dextrose 5%-Water 100 ML IV SCH (08:53)
--- NOTE | 2017-06-02 08:53 | PCM.DCSUM1 ---
Discharge Summary - Hospital Course Free Text/Narrative:: Pt has progressed well with resolving pneumonia. WBC decreased today. Pt alert and feeling better, return to baseline for respiratory status. Will discharge today with Rx Levaquin and taper dose Prednisone. Medications as at home. F/U in clinic next week. Follow-up with coumadin clinic for change in Coumadin dose. States his level should be about 1.5-2.0. I notified him of level of 2.5 and he will F/U with [place] [facility] for this. - Discharge Data Discharge Date: 06/02/17 Discharge Disposition: Home, Self-Care 01 Condition: Good - Discharge Diagnosis/Problem(s) (1) Shortness of breath SNOMED Code(s): 290679575 ICD Code: R06.02 - SHORTNESS OF BREATH Status: Acute Current Visit: Yes (2) Pneumonia SNOMED Code(s): 771396135 ICD Code: J18.9 - PNEUMONIA, UNSPECIFIED ORGANISM Status: Acute Current Visit: Yes Onset Date: ~05/30/17 Qualifiers: Laterality: bilateral - Patient Instructions Diet: Diabetic Diet Activity: As Tolerated Activity, Other: Limited extrenuous activity, Showering/Bathing: May Shower - Discharge Plan Home Medications: Home Meds Aspirin [Halfprin] 81 mg PO DAILY 05/30/17 [History] Benazepril/Hydrochlorothiazide [Benazepril-HCTZ 20-12.5 MG Tablet] 1 tab PO BID 05/30/17 [History] Bosentan [Tracleer] 125 mg PO BID 05/30/17 [History] Glimepiride [Amaryl] 1 mg PO BID 05/30/17 [History] Iloprost Tromethamine [Ventavis] 1 ampule INH 6XDAY 05/30/17 [History] Metoprolol Tartrate [Lopressor] 50 mg PO BID 05/30/17 [History] Sildenafil [Revatio] 20 mg PO TID 05/30/17 [History] Simvastatin [Zocor] 40 mg PO DAILY 05/30/17 [History] Warfarin [Coumadin] 2.5 mg PO DAILY 05/30/17 [History] amLODIPine [Norvasc] 10 mg PO DAILY 05/30/17 [History] metFORMIN [Glucophage] 1,000 mg PO DAILY 05/30/17 [History] metFORMIN [Glucophage] 500 mg PO 1200 05/30/17 [History] Patient Handouts: Prednisone tablets Forms: ED Department Discharge Referrals: PCP,None [Primary Care Provider] - - General Info Date of Service: 06/02/17 Admission Dx/Problem (Free Text: pneumonia: Functional Status: Reports: Tolerating Diet, Ambulating, Urinating - Review of Systems General: Reports: No Symptoms HEENT: Reports: No Symptoms Pulmonary: Reports: Shortness of Breath (Improved, return to baseline) Cardiovascular: Reports: No Symptoms Gastrointestinal: Reports: No Symptoms Genitourinary: Reports: No Symptoms Musculoskeletal: Reports: No Symptoms Skin: Reports: No Symptoms Neurological: Reports: No Symptoms Psychiatric: Reports: No Symptoms - Patient Data Vitals - Most Recent: Last Vital Signs Temp 97.9 F 06/02/17 04:00 Pulse 58 L 06/02/17 07:50 Resp 18 06/02/17 04:00 BP 147/82 H 06/02/17 07:50 Pulse Ox 98 06/02/17 04:00 Weight - Most Recent: 225 lb Lab Results - Last 24 hrs: Laboratory Results - last 24 hr 06/01/17 06/01/17 06/02/17 Range/Units 07:44 19:19 07:00 WBC (4.0-11.0) K/uL RBC (4.50-6.50) M/uL Hgb (13.0-18.0) g/dL Hct (40.0-54.0) % MCV (76-96) fL MCH (27.0-32.0) pg MCHC (31.0-35.0) g/dL RDW (11.0-16.0) % Plt Count (150-400) K/uL MPV (6.0-10.0) fL Neut % (Auto) (45.0-70.0) % Lymph % (Auto) (20.0-40.0) % [place] % (Auto) (3.0-10.0) % Eos % (Auto) (1.0-5.0) % Baso % (Auto) (0.0-0.5) % Neut # (Auto) (2.00-7.50) K/uL Lymph # (Auto) (1.50-4.00) K/uL [place] # (Auto) (0.20-0.80) K/uL Eos # (Auto) (0.04-0.40) K/uL Baso # (Auto) (0.02-0.10) K/uL PT (9.0-11.5) sec INR (1.0-3.5) Sodium (136-145) mmol/L Potassium (3.5-5.1) mmol/L Chloride (98-107) mmol/L Carbon Dioxide (21.0-32.0) mmol/L Anion Gap (5.0-15.0) mmol/L BUN (8-26) mg/dL Creatinine (0.70-1.30) mg/dL Est Cr Clr Drug Dosing mL/min Estimated GFR (MDRD) (>60) MLS/MIN BUN/Creatinine Ratio (6-25) Glucose (74-100) mg/dL POC Glucose 201 H 139 H 72 L (74-110) mg/dL Calcium (8.5-10.1) mg/dL 06/02/17 06/02/17 06/02/17 Range/Units 08:10 08:10 08:10 WBC 14.1 H (4.0-11.0) K/uL RBC 4.29 L (4.50-6.50) M/uL Hgb 13.1 (13.0-18.0) g/dL Hct 39.1 L (40.0-54.0) % MCV 91 (76-96) fL MCH 30.5 (27.0-32.0) pg MCHC 33.5 (31.0-35.0) g/dL RDW 14.6 (11.0-16.0) % Plt Count 183 (150-400) K/uL MPV 9.6 (6.0-10.0) fL Neut % (Auto) 80.5 H (45.0-70.0) % Lymph % (Auto) 11.8 L (20.0-40.0) % [place] % (Auto) 7.4 (3.0-10.0) % Eos % (Auto) 0.2 L (1.0-5.0) % Baso % (Auto) 0.1 (0.0-0.5) % Neut # (Auto) 11.37 H (2.00-7.50) K/uL Lymph # (Auto) 1.66 (1.50-4.00) K/uL [place] # (Auto) 1.04 H (0.20-0.80) K/uL Eos # (Auto) 0.03 L (0.04-0.40) K/uL Baso # (Auto) 0.02 (0.02-0.10) K/uL PT 22.4 H (9.0-11.5) sec INR 2.4 (1.0-3.5) Sodium 136 (136-145) mmol/L Potassium 4.2 (3.5-5.1) mmol/L Chloride 105 (98-107) mmol/L Carbon Dioxide 27.0 (21.0-32.0) mmol/L Anion Gap 8.2 (5.0-15.0) mmol/L BUN 34 H D (8-26) mg/dL Creatinine 1.31 H (0.70-1.30) mg/dL Est Cr Clr Drug Dosing 48.90 mL/min Estimated GFR (MDRD) 55 L (>60) MLS/MIN BUN/Creatinine Ratio 26.0 H (6-25) Glucose 87 D (74-100) mg/dL POC Glucose (74-110) mg/dL Calcium 9.1 (8.5-10.1) mg/dL [facility] Results - Last 24 hrs: Microbiology 05/31/17 Unknown MRSA Surveillance Culture - Final Nasal, Unspecified NO MRSA ISOLATED Med Orders - Current: Current Medications Albuterol (Proventil Neb Soln) 2.5 mg NEB Q2H PRN PRN Reason: Shortness of Breath Last Admin: 05/30/17 20:45 Dose: 2.5 mg Albuterol/Ipratropium (Duoneb 3.0-0.5 Mg/3 Ml) 3 ml NEB Q4H PRN PRN Reason: Dyspnea Amlodipine Besylate (Norvasc) 10 mg PO DAILY [facility] Last Admin: 06/02/17 07:50 Dose: 10 mg Aspirin (Halfprin) 81 mg PO DAILY [facility] Last Admin: 06/02/17 07:49 Dose: 81 mg Benazepril HCl (Lotensin) 20 mg PO BID [facility] Last Admin: 06/02/17 07:50 Dose: 20 mg Glimepiride (Glimepiride) 1 mg PO BIDMEALS [facility] Last Admin: 06/02/17 07:53 Dose: 1 mg Hydrochlorothiazide (Hydrochlorothiazide) 12.5 mg PO BID [facility] Last Admin: 06/02/17 07:51 Dose: 12.5 mg Levofloxacin/Dextrose (Levaquin In D5w 500 Mg/100 Ml) 100 mls @ 100 mls/hr IV DAILY [facility] Last Admin: 06/01/17 10:18 Dose: 100 mls/hr Insulin Human Regular (Humulin R) 0 unit SUBCUT 0800,1200,1700,2000 [facility] PRN Reason: Protocol Last Admin: 06/02/17 08:00 Dose: Not Given Metformin HCl (Glucophage) 500 mg PO 1200 [facility] Last Admin: 06/01/17 12:00 Dose: 500 mg Metformin HCl (Glucophage) 1,000 mg PO DAILY [facility] Last Admin: 06/02/17 07:49 Dose: 1,000 mg Metoprolol Tartrate (Lopressor) 50 mg PO BID [facility] Last Admin: 06/02/17 07:50 Dose: 50 mg Non-Formulary Medication (Bosentan [Tracleer]) 125 mg PO BID [facility] Last Admin: 06/02/17 07:48 Dose: 125 mg (Iloprost Tromethamine [ Ventavis] 1 Ampule) 1 ampule INH ,,,16,, [facility] Last Admin: 06/02/17 07:48 Dose: 1 ampule Prednisone (Prednisone) 50 mg PO .Daily Taper [facility] PRN Reason: Taper Stop: 06/08/17 07:59 Last Admin: 06/02/17 07:50 Dose: 50 mg Sildenafil Citrate (Revatio) 20 mg PO TID [facility] Last Admin: 06/02/17 07:52 Dose: 20 mg Simvastatin (Zocor) 40 mg PO BEDTIME [facility] Last Admin: 06/01/17 20:11 Dose: 40 mg Sodium Chloride (Saline Flush) 10 ml FLUSH BID [facility] Last Admin: 06/02/17 07:58 Dose: 10 ml Sodium Chloride (Saline Flush) 10 ml FLUSH ASDIRECTED PRN PRN Reason: Keep Vein Open Warfarin Sodium (Coumadin) 5 mg PO [id number] [facility] Last Admin: 06/01/17 18:00 Dose: 5 mg Warfarin Sodium (Coumadin) 6 mg PO Fr [place] Warfarin Sodium (Coumadin) 0.25 mg PO Fr [place] Discontinued Medications Albuterol/Ipratropium (Duoneb 3.0-0.5 Mg/3 Ml) 3 ml NEB Q4H [facility] Last Admin: 05/31/17 05:23 Dose: Not Given Furosemide (Lasix) 20 mg IVPUSH NOW ONE Stop: 06/01/17 08:47 Last Admin: 06/01/17 11:00 Dose: 20 mg Sodium Chloride (Normal Saline) 1,000 mls @ 125 mls/hr IV ASDIRECTED ONE Stop: 05/31/17 04:24 Last Admin: 05/30/17 22:29 Dose: Not Given Levofloxacin 500 mg/ Dextrose/ (Water) 120 mls @ 220 mls/hr IV DAILY [facility] Last Admin: 05/30/17 22:29 Dose: Not Given Levofloxacin 750 mg/ Dextrose/ (Water) 130 mls @ 220 mls/hr IV DAILY [facility] Last Admin: 05/31/17 07:13 Dose: 220 mls/hr Levofloxacin/Dextrose (Levaquin In D5w 750 Mg/150 Ml) Confirm Administered Dose 150 mls @ as directed IV .STK-MED ONE Stop: 05/31/17 05:58 Last Admin: 05/31/17 06:21 Dose: Not Given Sodium Chloride (Normal Saline) 1,000 mls @ 50 mls/hr IV ASDIRECTED [facility] Last Admin: 05/31/17 16:59 Dose: 50 mls/hr Levofloxacin/Dextrose (Levaquin In D5w 250 Mg/50 Ml) 50 mls @ 50 mls/hr IV DAILY [facility] Last Admin: 06/02/17 03:49 Dose: Not Given Ceftriaxone Sodium 1 gm/ (Sodium Chloride) 50 mls @ 100 mls/hr IV Q24H [facility] Last Admin: 06/02/17 03:50 Dose: Not Given Insulin Human Regular (Humulin R) 0 unit SUBCUT QIDACANDBED [facility] PRN Reason: Protocol Last Admin: 05/31/17 20:39 Dose: 2 units Methylprednisolone Sodium Succinate (Solu-Medrol) 125 mg IVPUSH ONETIME ONE Stop: 05/30/17 20:29 Last Admin: 05/30/17 22:28 Dose: Not Given Methylprednisolone Sodium Succinate (Solu-Medrol) 60 mg IVPUSH Q6H [facility] Stop: 06/01/17 06:00 Last Admin: 06/01/17 04:15 Dose: 60 mg Non-Formulary Medication (Benazepril/Hydrochlorothiazide [Benazepril-Hctz 20- 12.5 Mg]) 1 tab PO BID [facility] Ranitidine HCl (Zantac) Confirm Administered Dose 150 mg .ROUTE .STK-MED ONE Stop: 05/31/17 20:25 Last Admin: 05/31/17 20:39 Dose: 150 mg Ranitidine HCl (Zantac) Confirm Administered Dose 150 mg .ROUTE .STK-MED ONE Stop: 06/01/17 18:47 Last Admin: 06/01/17 18:30 Dose: 150 mg Warfarin Sodium (Coumadin) 5 mg PO DAILY@1800 [facility] Stop: 05/31/17 23:59 Last Admin: 05/31/17 17:02 Dose: 5 mg - Exam Quality Assessment: Reports: Supplemental Oxygen General: Reports: Alert, Oriented, No Acute Distress HEENT: Reports: Mucous Membr. Moist/[place] Neck: Reports: Supple Lungs: Reports: Clear to Auscultation, Normal Respiratory Effort Cardiovascular: Reports: Regular Rate, Regular Rhythm GI/Abdominal Exam: Normal Bowel Sounds, Non-Tender Back Exam: Reports: Normal Inspection Extremities: Normal Inspection Skin: Reports: Warm, Dry, Intact Neurological: Reports: Normal Gait, Normal Speech Psy/Mental Status: Reports: Alert, Normal Affect, Normal Mood *Q Meaningful Use (DIS) - VTE *Q VTE Criteria *Q: - Stroke *Q Stroke Criteria *Q: - AMI *Q AMI Criteria *Q:
== END 2017-06-02 10:10 | disposition home or self-care (01) | DRG 195 ==
LOC: LB.ED 20:20 → LB.MS 21:25 → UNDOADMIN 22:15 → LB.MS 05-31 18:27
PROVIDERS: ADMIT Nurse Practitioner Family; ATTEND Nurse Practitioner Family
DX: J18.9 Pneumonia, unspecified organism (principal); I27.20 Pulmonary hypertension, unspecified; E11.9 Type 2 diabetes mellitus without complications; Z79.82 Long term (current) use of aspirin; Z79.01 Long term (current) use of anticoagulants; Z79.84 Long term (current) use of oral hypoglycemic drugs; R09.02 Hypoxemia
CPT/HCPCS: 36415; 71010; 80053; 83880; 85025; 87040; 99285; A9270; J2930; J7040; J7060; J7620; 71020; 80048; 82962; 85610; J1815; J1940; J1956; J2920; J7050

== ENCOUNTER 2018-07-16 19:43 | Inpatient (IN) | payer MEDICARE ==
[2018-07-16] MEDS ORDERED: methylPREDNISolone Sodium Succinate 125 MG/2 ML SDV IVPUSH ONE (20:02)
[2018-07-16] MEDS ORDERED: Albuterol/Ipratropium 3.0-0.5 MG/3 ML Neb Soln NEB PRN (20:03)
--- NOTE | 2018-07-16 20:18 | EDM.PDOC ---
ED HPI GENERAL MEDICAL PROBLEM - General Chief Complaint: General Stated Complaint: DYSPNEA Time Seen by Provider: 07/16/18 20:07 Source of Information: Reports: Patient, EMS, RN History Limitations: Reports: No Limitations - History of Present Illness INITIAL COMMENTS - FREE TEXT/NARRATIVE: 68 yr male presents to ER from ambulance transfer with shortness of breath. 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 Symptoms started around 530 tonight. SpO2 at home was 77% and nonrebreather started and SpO2 increase to 90%. IV started and solu-medrol 125mg IV given and duo-neb started. Labs drawn, drum stenciler on. SpO2 =91-93% with non- rebreather on. SpO2 =80% with N/C on at 5LPM, while duoneb is running. - Related Data Allergies Allergy/AdvReac Type Severity Reaction Status Date / Time No Known Allergies Allergy Verified 05/30/17 22:28 Home Meds: Home Meds Aspirin [Halfprin] 81 mg PO DAILY 05/30/17 [History] Benazepril/Hydrochlorothiazide [Benazepril-HCTZ 20-12.5 MG] 1 tab PO BID [History] Bosentan [Tracleer] 125 mg PO BID 05/30/17 [History] Glimepiride [Amaryl] 1 mg PO BID 05/30/17 [History] Iloprost Tromethamine [Ventavis] 1 ampule INH 6XDAY 05/30/17 [History] Metoprolol Tartrate [Lopressor] 50 mg PO BID 05/30/17 [History] Sildenafil [Revatio] 20 mg PO TID 05/30/17 [History] Simvastatin [Zocor] 40 mg PO DAILY 05/30/17 [History] Warfarin [Coumadin] 2.5 mg PO DAILY 05/30/17 [History] amLODIPine [Norvasc] 10 mg PO DAILY 05/30/17 [History] metFORMIN [Glucophage] 1,000 mg PO DAILY 05/30/17 [History] metFORMIN [Glucophage] 500 mg PO 1200 05/30/17 [History] Levofloxacin [Levaquin] 250 mg PO Q24H #6 tablet 06/02/17 [Rx] Warfarin [Coumadin] 0.25 mg PO Fr tablet 06/02/17 [Rx] Warfarin [Coumadin] 5 mg PO [id number] tablet 06/02/17 [Rx] Warfarin [Coumadin] 6 mg PO Fr tablet 06/02/17 [Rx] predniSONE 10 mg PO .Daily Taper #10 tablet 06/02/17 [Rx] Past Medical History HEENT History: Reports: Other (See Below) Other HEENT History: Somewhat [place]PPER [place]. Cardiovascular History: Reports: CAD, High Cholesterol, Hypertension, [place] Respiratory History: Reports: COPD Genitourinary History: Reports: Acute Renal Failure Endocrine/Metabolic History: Reports: Diabetes, Type II Social & Family History - Family History Family Medical History: Noncontributory - Caffeine Use Caffeine Use: Reports: Coffee ED ROS GENERAL - Review of Systems Review Of Systems: See Below Constitutional: Reports: Weakness HEENT: Reports: Glasses (reading only) Respiratory: Reports: Shortness of Breath, Cough Cardiovascular: Reports: No Symptoms Endocrine: Reports: Other (diabetic) GI/Abdominal: Reports: No Symptoms : Reports: No Symptoms Musculoskeletal: Reports: No Symptoms Skin: Reports: No Symptoms Neurological: Reports: No Symptoms Psychiatric: Reports: No Symptoms Hematologic/Lymphatic: Reports: Easy Bleeding, Easy Bruising (related to coumadin) Immunologic: Reports: No Symptoms ED EXAM, GENERAL - Physical Exam Exam: See Below Exam Limited By: No Limitations General Appearance: Alert, No Apparent Distress Ears: Hearing Grossly Normal Nose: Normal Inspection, Normal Mucosa Throat/Mouth: Normal Inspection, Normal Lips, Normal Voice, No Airway Compromise Head: Atraumatic, Normocephalic Neck: Normal Inspection, Supple, Non-Tender Respiratory/Chest: Decreased Breath Sounds (to bases), Rhonchi Cardiovascular: Regular Rate, Rhythm, No Edema GI/Abdominal: Soft, Non-Tender, Other (rotund) Extremities: Non-Tender, No Pedal Edema Neurological: Alert, Oriented, Normal Cognition Psychiatric: Normal Affect, Normal Mood Skin Exam: Warm, Dry, Other (reddness to cheeks) Lymphatic: No Adenopathy Course - Orders/Labs/Meds Orders: Active Orders 24 hr Category Date Time Status Patient Status [ADT] Routine ADT 07/16/18 21:12 Ordered Cardiac Monitoring [RC] .As Directed Care 07/16/18 20:11 Active Height and Weight [RC] DAILY Care 07/16/18 21:12 Ordered Intake and Output [RC] QSHIFT Care 07/16/18 21:14 Ordered Oxygen Therapy [RC] PRN Care 07/16/18 21:12 Ordered RT Aerosol Therapy [RC] ASDIRECTED Care 07/16/18 20:04 Active Vital Signs [RC] Q4H Care 07/16/18 21:12 Ordered Heart Healthy Diet [DIET] Diet 07/17/18 Breakfast Ordered Chest 1V Frontal [CR] Stat Exams 07/16/18 20:12 Ordered CBC WITH AUTO DIFF [HEME] Routine Lab 07/17/18 07:30 Ordered CULTURE BLOOD [BC] Stat Lab 07/16/18 20:44 Ordered CULTURE BLOOD [BC] Stat Lab 07/16/18 20:45 Ordered INR,PT,PROTHROMBIN TIME [COAG] Routine Lab 07/17/18 07:30 Ordered Albuterol/Ipratropium [DuoNeb 3.0-0.5 MG/3 ML] Med 07/16/18 20:03 Active 3 ml NEB Q2H PRN Aspirin [Halfprin] Med 07/17/18 08:00 Ordered 81 mg PO DAILY Benazepril/Hydrochlorothiazide [Benazepril-HCTZ 20-12.5 Med 07/17/18 08:00 Ordered MG] 1 tab PO BID Bosentan [Tracleer] Med 07/16/18 21:00 Ordered 125 mg PO BID Glimepiride [Amaryl] Med 07/17/18 08:00 Ordered 0.5 mg PO DAILY Sildenafil [Revatio] Med 07/17/18 08:00 Ordered 20 mg PO TID Simvastatin [Zocor] Med 07/17/18 08:00 Ordered 40 mg PO DAILY Warfarin [Coumadin] Med 07/23/18 21:15 Ordered 10 mg PO MO Warfarin [Coumadin] Med 07/17/18 18:00 Ordered 7.5 mg PO SUTUWETHFRSA amLODIPine [Norvasc] Med 07/17/18 08:00 Ordered 10 mg PO DAILY levoFLOXacin [Levaquin] 500 mg Med 07/16/18 21:00 Active Dextrose 5% in Water 100 ml IV DAILY metFORMIN [Glucophage] Med 07/17/18 08:00 Ordered 1,000 mg PO BID metFORMIN [Glucophage] Med 07/17/18 12:00 Ordered 500 mg PO 1200 methylPREDNISolone Sod Succ [Solu-MEDROL] Med 07/17/18 04:00 Ordered 40 mg IVPUSH Q8H Medication Orders Albuterol/Ipratropium (Duoneb 3.0-0.5 Mg/3 Ml) 3 ml NEB Q2H PRN PRN Reason: Respiratory Depression Amlodipine Besylate (Norvasc) 10 mg PO DAILY [facility] Aspirin (Halfprin) 81 mg PO DAILY [facility] Levofloxacin 500 mg/ Dextrose/ (Water) 120 mls @ 220 mls/hr IV DAILY [facility] Metformin HCl (Glucophage) 1,000 mg PO BID [facility] Metformin HCl (Glucophage) 500 mg PO 1200 [facility] Methylprednisolone Sodium Succinate (Solu-Medrol) 40 mg IVPUSH Q8H [facility] Non-Formulary Medication (Benazepril/Hydrochlorothiazide [Benazepril-Hctz 20- 12.5 Mg]) 1 tab PO BID [facility] Non-Formulary Medication (Bosentan [Tracleer]) 125 mg PO BID [facility] Non-Formulary Medication (Glimepiride [Amaryl]) 0.5 mg PO DAILY [facility] Sildenafil Citrate (Revatio) 20 mg PO TID [facility] Simvastatin (Zocor) 40 mg PO DAILY [facility] Warfarin Sodium (Coumadin) 10 mg PO MO [facility] Warfarin Sodium (Coumadin) 7.5 mg PO SUTUWETHFRSA [facility] Labs: Laboratory Tests 07/16/18 07/16/18 Range/Units 20:15 20:15 WBC 13.5 H D (4.0-11.0) K/uL RBC 4.70 (4.50-6.50) M/uL Hgb 12.7 L (13.0-18.0) g/dL Hct 39.9 L (40.0-54.0) % MCV 85 (76-96) fL MCH 27.0 (27.0-32.0) pg MCHC 31.8 (31.0-35.0) g/dL RDW 15.8 (11.0-16.0) % Plt Count 314 D (150-400) K/uL MPV 9.6 (6.0-10.0) fL Neut % (Auto) 89.3 H (45.0-70.0) % Lymph % (Auto) 4.7 L (20.0-40.0) % [place] % (Auto) 4.0 (3.0-10.0) % Eos % (Auto) 1.3 (1.0-5.0) % Baso % (Auto) 0.7 H (0.0-0.5) % Neut # (Auto) 12.04 H (2.00-7.50) K/uL Lymph # (Auto) 0.63 L (1.50-4.00) K/uL [place] # (Auto) 0.54 (0.20-0.80) K/uL Eos # (Auto) 0.17 (0.04-0.40) K/uL Baso # (Auto) 0.09 (0.02-0.10) K/uL Sodium 141 (136-145) mmol/L Potassium 5.1 (3.5-5.1) mmol/L Chloride 105 (98-107) mmol/L Carbon Dioxide 22.4 (21.0-32.0) mmol/L Anion Gap 18.7 H (5.0-15.0) mmol/L BUN 31 H (8-26) mg/dL Creatinine 1.69 H D (0.70-1.30) mg/dL Est Cr Clr Drug Dosing TNP Estimated GFR (MDRD) 41 L (>60) MLS/MIN BUN/Creatinine Ratio 18.3 (6-25) Glucose 157 H D (74-100) mg/dL Calcium 9.0 (8.5-10.1) mg/dL Total Bilirubin 0.5 (0.0-1.0) mg/dL AST 16 (15-37) U/L ALT 23 (12-78) U/L Alkaline Phosphatase 71 (46-116) U/L Troponin I < 0.017 (0.000-0.060) ng/mL Total Protein 7.2 (6.4-8.2) g/dL Albumin 3.9 (3.4-5.0) g/dL Globulin 3.3 (2.2-4.2) g/dL Albumin/Globulin Ratio 1.2 (0.8-2.0) Meds: Medications Generic Name Dose Route Start Last Admin Trade Name Freq PRN Reason Stop Dose Admin Albuterol/Ipratropium 3 ml 07/16/18 20:03 Duoneb 3.0-0.5 Mg/3 Ml NEB Q2H PRN Respiratory Depression Amlodipine Besylate 10 mg 02/05/19 08:00 Norvasc PO DAILY [facility] Aspirin 81 mg 07/17/18 08:00 Halfprin PO DAILY [facility] Levofloxacin 500 mg/ Dextrose/ 120 mls @ 220 mls/hr 07/16/18 21:00 Water IV DAILY [facility] Metformin HCl 1,000 mg 07/17/18 08:00 Glucophage PO BID [facility] Metformin HCl 500 mg 07/17/18 12:00 Glucophage PO 1200 [facility] Methylprednisolone Sodium Succinate 40 mg 07/17/18 04:00 Solu-Medrol IVPUSH Q8H [facility] Non-Formulary Medication 1 tab 07/17/18 08:00 Benazepril/Hydrochlorothiazide [Benazepril-Hctz 20-12.5 Mg] PO BID [facility] Non-Formulary Medication 125 mg 07/16/18 21:00 Bosentan [Tracleer] PO BID [facility] Non-Formulary Medication 0.5 mg 07/17/18 08:00 Glimepiride [Amaryl] PO DAILY [facility] Sildenafil Citrate 20 mg 07/17/18 08:00 Revatio PO TID [facility] Simvastatin 40 mg 07/17/18 08:00 Zocor PO DAILY [facility] Warfarin Sodium 10 mg 07/23/18 21:15 Coumadin PO MO [facility] Warfarin Sodium 7.5 mg 07/17/18 18:00 Coumadin PO SUTUWETHFRSA [facility] Discontinued Medications Generic Name Dose Route Start Last Admin Trade Name Freq PRN Reason Stop Dose Admin Methylprednisolone Sodium Succinate 125 mg 07/16/18 20:02 Solu-Medrol IVPUSH 07/16/18 20:03 ONETIME ONE Warfarin Sodium 0.25 mg 07/20/18 20:54 Coumadin PO Fr [facility] Warfarin Sodium 2.5 mg 07/17/18 08:00 Coumadin PO DAILY [facility] Warfarin Sodium 5 mg 07/16/18 21:00 Coumadin PO SuMoTuWeThSa [facility] Warfarin Sodium 6 mg 07/20/18 20:54 Coumadin PO Fr [facility] - Re-Assessments/Exams Free Text/Narrative Re-Assessment/Exam: 07/16/18 21:17 Solumedrol IV given and duoneb neb given. SpO2=90% with non rebreather on. Blood cultures obtained. WBC elevated. 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 He has started a couple different nebulizers and has those with him. He is oxygen dependent and has chronic pulmonary hypertension, COPD. He does monitor the PT/INR on Wednesdays at home and takes 10 mg Coumadin most days and 7.5 mg on Mondays. He does run about 89- 90% oxygen per n/c at home with oxygen at 10lpm. Will start Levofloxacin 500 mg IV daily and stop the oral Azithromycin at this time. Will admit with pneumonia, pulmonary hypertension and COPD. Departure - Departure Time of Disposition: 21:00 Disposition: Admitted As Inpatient 68 Condition: Fair Clinical Impression: Pneumonia, Pulmonary hypertension, Diabetes - Discharge Information *PRESCRIPTION DRUG MONITORING PROGRAM REVIEWED*: Not Applicable *COPY OF PRESCRIPTION DRUG MONITORING REPORT IN PATIENT TONY: Not Applicable Forms: ED Department Discharge - My Orders Last 24 Hours: My Active Orders 07/16/18 20:03 Albuterol/Ipratropium [DuoNeb 3.0-0.5 MG/3 ML] 3 ml NEB Q2H PRN 07/16/18 20:04 RT Aerosol Therapy [RC] ASDIRECTED 07/16/18 20:11 Cardiac Monitoring [RC] .As Directed 07/16/18 20:12 Chest 1V Frontal [CR] Stat 07/16/18 20:44 CULTURE BLOOD [BC] Stat 07/16/18 20:45 CULTURE BLOOD [BC] Stat 07/16/18 21:00 Bosentan [Tracleer] 125 mg PO BID levoFLOXacin [Levaquin] 500 mg Dextrose 5% in Water 100 ml IV DAILY 07/16/18 21:12 Patient Status [ADT] Routine Height and Weight [RC] DAILY Oxygen Therapy [RC] PRN Vital Signs [RC] Q4H 07/16/18 21:14 Intake and Output [RC] QSHIFT 07/17/18 04:00 methylPREDNISolone Sod Succ [Solu-MEDROL] 40 mg IVPUSH Q8H 07/17/18 07:30 CBC WITH AUTO DIFF [HEME] Routine INR,PT,PROTHROMBIN TIME [COAG] Routine 07/17/18 08:00 Aspirin [Halfprin] 81 mg PO DAILY Benazepril/Hydrochlorothiazide [Benazepril-HCTZ 20-12.5 MG] 1 tab PO BID Glimepiride [Amaryl] 0.5 mg PO DAILY Sildenafil [Revatio] 20 mg PO TID Simvastatin [Zocor] 40 mg PO DAILY amLODIPine [Norvasc] 10 mg PO DAILY metFORMIN [Glucophage] 1,000 mg PO BID 07/17/18 12:00 metFORMIN [Glucophage] 500 mg PO 1200 07/17/18 18:00 Warfarin [Coumadin] 7.5 mg PO SUTUWETHFRSA 07/17/18 Breakfast Heart Healthy Diet [DIET] 07/23/18 21:15 Warfarin [Coumadin] 10 mg PO MO - Assessment/Plan Last 24 Hours: My Active Orders 07/16/18 20:03 Albuterol/Ipratropium [DuoNeb 3.0-0.5 MG/3 ML] 3 ml NEB Q2H PRN 07/16/18 20:04 RT Aerosol Therapy [RC] ASDIRECTED 07/16/18 20:11 Cardiac Monitoring [RC] .As Directed 07/16/18 20:12 Chest 1V Frontal [CR] Stat 07/16/18 20:44 CULTURE BLOOD [BC] Stat 07/16/18 20:45 CULTURE BLOOD [BC] Stat 07/16/18 21:00 Bosentan [Tracleer] 125 mg PO BID levoFLOXacin [Levaquin] 500 mg Dextrose 5% in Water 100 ml IV DAILY 07/16/18 21:12 Patient Status [ADT] Routine Height and Weight [RC] DAILY Oxygen Therapy [RC] PRN Vital Signs [RC] Q4H 07/16/18 21:14 Intake and Output [RC] QSHIFT 07/17/18 04:00 methylPREDNISolone Sod Succ [Solu-MEDROL] 40 mg IVPUSH Q8H 07/17/18 07:30 CBC WITH AUTO DIFF [HEME] Routine INR,PT,PROTHROMBIN TIME [COAG] Routine 07/17/18 08:00 Aspirin [Halfprin] 81 mg PO DAILY Benazepril/Hydrochlorothiazide [Benazepril-HCTZ 20-12.5 MG] 1 tab PO BID Glimepiride [Amaryl] 0.5 mg PO DAILY Sildenafil [Revatio] 20 mg PO TID Simvastatin [Zocor] 40 mg PO DAILY amLODIPine [Norvasc] 10 mg PO DAILY metFORMIN [Glucophage] 1,000 mg PO BID 07/17/18 12:00 metFORMIN [Glucophage] 500 mg PO 1200 02/05/19 18:00 Warfarin [Coumadin] 7.5 mg PO SUTUWETHFRSA 07/17/18 Breakfast Heart Healthy Diet [DIET] 07/23/18 21:15 Warfarin [Coumadin] 10 mg PO MO Plan: Admit with pneumonia, pulmonary hypertension, diabetes, and COPD 07-16-18 Solu-medrol 40 mg IV tid. Nebulizer every 2-6 hour prn. Levofloxacin 500 mg IV Blood cultures pending. X-ray results with pneumonia, small, bilateral pleural effusions, and interstitial densities in lung cuenca. Elevated WBC and elevated neutrophils.
[2018-07-16] MEDS ORDERED: Warfarin 5 MG Tab PO SCH (21:00)
[2018-07-16] MEDS: Sodium Chloride 0.9% 1,000 ML IV SCH (21:40)
[2018-07-16] MEDS ORDERED: Morphine 2 MG/ML Syringe IVPUSH PRN (21:53)
[2018-07-16] MEDS ORDERED: Levalbuterol HCl 1.25 MG/0.5 ML Neb NEB PRN (21:55)
[2018-07-16] MEDS: BOSENTAN 125 MG PO SCH (22:25)
[2018-07-16] MEDS ORDERED: Formoterol/Mometasone 200-5 MCG 8.8 GM Inhaler IH SCH (23:30)
[2018-07-16] MEDS ORDERED: Formoterol/Mometasone 100-5 MCG 8.8 GM Inhaler IH SCH (23:45)
[2018-07-17] MEDS ORDERED: methylPREDNISolone Sodium Succinate 40 MG/1 ML SDV IVPUSH SCH (04:00)
[2018-07-17] MEDS ORDERED: Benazepril 10 MG Tab ONE (07:40)
[2018-07-17] MEDS ORDERED: Hydrochlorothiazide 12.5 MG Cap ONE (07:41)
[2018-07-17] MEDS ORDERED: Levofloxacin/Dextrose 5%-Water 100 ML IV ONE (07:47)
[2018-07-17] MEDS ORDERED: Warfarin 2.5 MG Tab PO SCH (08:00)
[2018-07-17] MEDS: Aspirin 81 MG Tab.EC PO SCH (08:26)
[2018-07-17] MEDS: metFORMIN 500 MG Tab PO SCH ×3 (08:26→20:41)
[2018-07-17] MEDS: amLODIPine 10 MG Tab PO SCH (08:27)
[2018-07-17] MEDS: BOSENTAN 125 MG PO SCH ×2 (08:28→20:40)
[2018-07-17] MEDS: Simvastatin 40 MG Tab PO SCH (08:28)
--- NOTE | 2018-07-17 09:33 | PCM.PN ---
- General Info Date of Service: 07/17/18 Admission Dx/Problem (Free Text): community acquired pneumonia Subjective Update: States he is breathing better and is eating ok, not much appetite, voiding well this am Functional Status: Reports: Tolerating Diet, Urinating - Review of Systems General: Reports: Weakness HEENT: Reports: Glasses. Denies: Sinus Congestion, Sore Throat Pulmonary: Reports: Shortness of Breath, Cough. Denies: Sputum Cardiovascular: Reports: Dyspnea on Exertion. Denies: Chest Pain, Palpitations , Edema Gastrointestinal: Reports: Decreased Appetite. Denies: Diarrhea, Nausea Genitourinary: Reports: No Symptoms Musculoskeletal: Reports: No Symptoms Skin: Reports: Dryness Neurological: Denies: Confusion, Dizziness, Headache - Patient Data Vitals - Most Recent: Last Vital Signs Temp 98.2 F 07/17/18 07:30 Pulse 61 07/17/18 07:30 Resp 20 07/17/18 07:30 BP 130/69 07/17/18 08:27 Pulse Ox 98 07/17/18 07:30 Weight - Most Recent: 195 lb 3.2 oz I&O - Last 24 Hours: Intake & Output 07/16/18 07/17/18 07/17/18 22:59 06:59 14:59 Intake Total 675 Output Total 0 Balance 675 Lab Results Last 24 Hours: Laboratory Results - last 24 hr 07/16/18 07/16/18 07/17/18 Range/Units 20:15 20:15 07:20 WBC 13.5 H D 8.0 D (4.0-11.0) K/uL RBC 4.70 4.10 L (4.50-6.50) M/uL Hgb 12.7 L 11.1 L (13.0-18.0) g/dL Hct 39.9 L 35.1 L (40.0-54.0) % MCV 85 86 (76-96) fL MCH 27.0 27.1 (27.0-32.0) pg MCHC 31.8 31.6 (31.0-35.0) g/dL RDW 15.8 15.5 (11.0-16.0) % Plt Count 314 D 245 D (150-400) K/uL MPV 9.6 9.5 (6.0-10.0) fL Neut % (Auto) 89.3 H 95.8 H (45.0-70.0) % Lymph % (Auto) 4.7 L 3.1 L (20.0-40.0) % [place] % (Auto) 4.0 0.8 L (3.0-10.0) % Eos % (Auto) 1.3 0.0 L (1.0-5.0) % Baso % (Auto) 0.7 H 0.3 (0.0-0.5) % Neut # (Auto) 12.04 H 7.62 H (2.00-7.50) K/uL Lymph # (Auto) 0.63 L 0.25 L (1.50-4.00) K/uL [place] # (Auto) 0.54 0.06 L (0.20-0.80) K/uL Eos # (Auto) 0.17 0.00 L (0.04-0.40) K/uL Baso # (Auto) 0.09 0.02 (0.02-0.10) K/uL PT (9.0-11.5) sec INR (1.0-3.5) Sodium 141 (136-145) mmol/L Potassium 5.1 (3.5-5.1) mmol/L Chloride 105 (98-107) mmol/L Carbon Dioxide 22.4 (21.0-32.0) mmol/L Anion Gap 18.7 H (5.0-15.0) mmol/L BUN 31 H (8-26) mg/dL Creatinine 1.69 H D (0.70-1.30) mg/dL Est Cr Clr Drug Dosing TNP Estimated GFR (MDRD) 41 L (>60) MLS/MIN BUN/Creatinine Ratio 18.3 (6-25) Glucose 157 H D (74-100) mg/dL Calcium 9.0 (8.5-10.1) mg/dL Total Bilirubin 0.5 (0.0-1.0) mg/dL AST 16 (15-37) U/L ALT 23 (12-78) U/L Alkaline Phosphatase 71 (46-116) U/L Troponin I < 0.017 (0.000-0.060) ng/mL Total Protein 7.2 (6.4-8.2) g/dL Albumin 3.9 (3.4-5.0) g/dL Globulin 3.3 (2.2-4.2) g/dL Albumin/Globulin Ratio 1.2 (0.8-2.0) 07/17/18 07/17/18 Range/Units 07:20 07:20 WBC (4.0-11.0) K/uL RBC (4.50-6.50) M/uL Hgb (13.0-18.0) g/dL Hct (40.0-54.0) % MCV (76-96) fL MCH (27.0-32.0) pg MCHC (31.0-35.0) g/dL RDW (11.0-16.0) % Plt Count (150-400) K/uL MPV (6.0-10.0) fL Neut % (Auto) (45.0-70.0) % Lymph % (Auto) (20.0-40.0) % [place] % (Auto) (3.0-10.0) % Eos % (Auto) (1.0-5.0) % Baso % (Auto) (0.0-0.5) % Neut # (Auto) (2.00-7.50) K/uL Lymph # (Auto) (1.50-4.00) K/uL [place] # (Auto) (0.20-0.80) K/uL Eos # (Auto) (0.04-0.40) K/uL Baso # (Auto) (0.02-0.10) K/uL PT 36.0 H D (9.0-11.5) sec INR 3.9 H D (1.0-3.5) Sodium 140 (136-145) mmol/L Potassium 5.1 (3.5-5.1) mmol/L Chloride 106 (98-107) mmol/L Carbon Dioxide 24.1 (21.0-32.0) mmol/L Anion Gap 15.0 (5.0-15.0) mmol/L BUN 33 H (8-26) mg/dL Creatinine 1.52 H (0.70-1.30) mg/dL Est Cr Clr Drug Dosing TNP Estimated GFR (MDRD) 46 L (>60) MLS/MIN BUN/Creatinine Ratio 21.7 (6-25) Glucose 169 H (74-100) mg/dL Calcium 8.3 L (8.5-10.1) mg/dL Total Bilirubin (0.0-1.0) mg/dL AST (15-37) U/L ALT (12-78) U/L Alkaline Phosphatase (46-116) U/L Troponin I (0.000-0.060) ng/mL Total Protein (6.4-8.2) g/dL Albumin (3.4-5.0) g/dL Globulin (2.2-4.2) g/dL Albumin/Globulin Ratio (0.8-2.0) Med Orders - Current: Current Medications Albuterol (Ventolin Hfa) 0 gm INH BID [facility] Albuterol/Ipratropium (Duoneb 3.0-0.5 Mg/3 Ml) 3 ml NEB Q2H PRN PRN Reason: Respiratory Depression Last Admin: 07/16/18 20:12 Dose: 3 ml Amlodipine Besylate (Norvasc) 10 mg PO DAILY [facility] Last Admin: 07/17/18 08:27 Dose: 10 mg Aspirin (Halfprin) 81 mg PO DAILY [facility] Last Admin: 07/17/18 08:26 Dose: 81 mg Levofloxacin 500 mg/ Dextrose/ (Water) 120 mls @ 220 mls/hr IV DAILY [facility] Last Admin: 07/17/18 08:24 Dose: 220 mls/hr Sodium Chloride (Normal Saline) 1,000 mls @ 50 mls/hr IV ASDIRECTED [facility] Levalbuterol HCl (Xopenex) 1.25 mg NEB Q4HR PRN PRN Reason: Shortness of Breath Metformin HCl (Glucophage) 1,000 mg PO BID [facility] Last Admin: 07/17/18 08:26 Dose: 1,000 mg Metformin HCl (Glucophage) 500 mg PO 1200 [facility] Methylprednisolone Sodium Succinate (Solu-Medrol) 40 mg IVPUSH Q8H [facility] Last Admin: 07/17/18 03:44 Dose: 40 mg Mometasone Furoate/Formoterol Fumar (Dulera 100-5 Mcg) 2 puff IH BID [facility] Morphine Sulfate (Morphine) 2 mg IVPUSH Q4H PRN PRN Reason: Shortness of Breath Last Admin: 02/04/19 22:47 Dose: 2 mg Non-Formulary Medication (Benazepril/Hydrochlorothiazide [Benazepril-Hctz 20- 12.5 Mg]) 1 tab PO BID [facility] Last Admin: 07/17/18 08:28 Dose: Not Given Non-Formulary Medication (Bosentan [Tracleer]) 125 mg PO BID [facility] Last Admin: 07/17/18 08:28 Dose: 125 mg Non-Formulary Medication (Glimepiride [Amaryl]) 0.5 mg PO DAILY [facility] Sildenafil Citrate (Revatio) 20 mg PO TID [facility] Simvastatin (Zocor) 40 mg PO DAILY [facility] Last Admin: 07/17/18 08:28 Dose: 40 mg Warfarin Sodium (Coumadin) 10 mg PO MO [facility] Warfarin Sodium (Coumadin) 7.5 mg PO SUTUWETHFRSA [facility] Warfarin Sodium (Coumadin) 5 mg PO ONETIME ONE Stop: 07/17/18 18:01 Discontinued Medications Benazepril HCl (Lotensin) Confirm Administered Dose 20 mg .ROUTE .STK-MED ONE Stop: 07/17/18 07:41 Last Admin: 07/17/18 08:27 Dose: 20 mg Hydrochlorothiazide (Hydrochlorothiazide) Confirm Administered Dose 12.5 mg .ROUTE .STK-MED ONE Stop: 07/17/18 07:42 Last Admin: 07/17/18 08:26 Dose: 12.5 mg Levofloxacin/Dextrose (Levaquin In D5w 500 Mg/100 Ml) Confirm Administered Dose 100 mls @ as directed IV .STK-MED ONE Stop: 07/17/18 07:48 Last Admin: 07/17/18 08:28 Dose: Not Given Methylprednisolone Sodium Succinate (Solu-Medrol) 125 mg IVPUSH ONETIME ONE Stop: 07/16/18 20:03 Last Admin: 07/16/18 20:09 Dose: 125 mg Mometasone Furoate/Formoterol Fumar (Dulera 200-5 Mcg) 2 puff IH BID [facility] Last Admin: 07/17/18 00:10 Dose: Not Given Warfarin Sodium (Coumadin) 0.25 mg PO Fr [facility] Warfarin Sodium (Coumadin) 2.5 mg PO DAILY [facility] Warfarin Sodium (Coumadin) 5 mg PO SuMoTuWeThSa [facility] Last Admin: 07/16/18 22:24 Dose: Not Given Warfarin Sodium (Coumadin) 6 mg PO Fr [facility] - Exam Quality Assessment: Supplemental Oxygen General: Alert, Oriented, Cooperative, No Acute Distress HEENT: Mucous Membr. Moist/[place] Neck: Supple, Trachea Midline Lungs: Rhonchi (occasional rhonchii to lower lobes), Other (Improved air exchange to bases). No: Wheezing Cardiovascular: Regular Rate, Regular Rhythm GI/Abdominal Exam: Soft, Non-Tender Extremities: Non-Tender, No Pedal Edema, Normal Capillary Refill Skin: Warm, Dry Neurological: Normal Speech Psy/Mental Status: Alert, Normal Affect, Normal Mood - Problem List & Annotations (1) Pneumonia SNOMED Code(s): 077695041 Code(s): J18.9 - PNEUMONIA, UNSPECIFIED ORGANISM Status: Acute Current Visit: Yes Onset Date: ~05/30/17 (2) Pulmonary hypertension SNOMED Code(s): 66703103 Code(s): I27.20 - PULMONARY HYPERTENSION, UNSPECIFIED Status: Acute Current Visit: Yes (3) Diabetes SNOMED Code(s): 89084395 Code(s): E11.9 - TYPE 2 DIABETES MELLITUS WITHOUT COMPLICATIONS Status: Chronic Current Visit: Yes (4) Anticoagulant long-term use SNOMED Code(s): 067912041 Code(s): Z79.01 - HEAD WAITER (CURRENT) USE OF ANTICOAGULANTS Status: Acute Current Visit: Yes - Problem List Review Problem List Initiated/Reviewed/Updated: Yes - My Orders Last 24 Hours: My Active Orders 07/16/18 20:03 Albuterol/Ipratropium [DuoNeb 3.0-0.5 MG/3 ML] 3 ml NEB Q2H PRN 07/16/18 20:04 RT Aerosol Therapy [RC] ASDIRECTED 07/16/18 20:12 Chest 1V Frontal [CR] Stat 07/16/18 20:50 CULTURE BLOOD [BC] Stat 07/16/18 20:57 CULTURE BLOOD [BC] Stat 07/16/18 21:00 Bosentan [Tracleer] 125 mg PO BID levoFLOXacin [Levaquin] 500 mg Dextrose 5% in Water 100 ml IV DAILY 07/16/18 21:12 Patient Status [ADT] Routine Height and Weight [RC] DAILY Oxygen Therapy [RC] 06,18 Vital Signs [RC] Q4H 07/16/18 21:14 Intake and Output [RC] 06,18 07/16/18 21:30 CULTURE MRSA SURVEY [RM] Routine 07/16/18 21:50 Sodium Chloride 0.9% [Normal Saline] 1,000 ml IV ASDIRECTED 07/16/18 21:53 Morphine 2 mg IVPUSH Q4H PRN 07/16/18 21:55 Levalbuterol HCl [Xopenex] 1.25 mg NEB Q4HR PRN 07/16/18 23:21 RT Post Treatment Assessment [RC] Click to Edit 07/16/18 23:45 Mometasone/Formoterol [Dulera 100-5 MCG] 2 puff IH BID 07/17/18 04:00 methylPREDNISolone Sod Succ [Solu-MEDROL] 40 mg IVPUSH Q8H 07/17/18 08:00 Aspirin [Halfprin] 81 mg PO DAILY Benazepril/Hydrochlorothiazide [Benazepril-HCTZ 20-12.5 MG] 1 tab PO BID Glimepiride [Amaryl] 0.5 mg PO DAILY Sildenafil [Revatio] 20 mg PO TID Simvastatin [Zocor] 40 mg PO DAILY amLODIPine [Norvasc] 10 mg PO DAILY metFORMIN [Glucophage] 1,000 mg PO BID 07/17/18 10:00 Albuterol [Ventolin HFA] 0 gm INH BID 07/17/18 12:00 metFORMIN [Glucophage] 500 mg PO 1200 07/17/18 18:00 Warfarin [Coumadin] 5 mg PO ONETIME ONE Warfarin [Coumadin] 7.5 mg PO SUTUWETHFRSA 07/17/18 Breakfast Consistent Carbohydrate Diet [DIET] Heart Healthy Diet [DIET] 07/18/18 08:00 Blood Glucose Check, Bedside [RC] DAILY 07/23/18 21:15 Warfarin [Coumadin] 10 mg PO MO - Plan Plan:: 07-17-18 Pneumonia, chronic pulmonary, arterial hypertension, diabetes controlled, possible pulmonary fibrosis and scarring and antii-coagulant therapy: Pt has improved respirations today. He is on triple medication for the pulmonary hypertension. In April he was using his oxygen at 4-6 L and now reports using 10L at home. His last PFT (12-19-17) showed significantly decline of 30% of FEV1, since previous PFT of 2011. He has a scheduled pulmonology appointment [facility]. SpO2 improved, weaning off of rebreather mask. WBC improved, will continue with Levofloxacin IV, d/C IV Solu-medrol and start PO prednisone. Start incentive spirometry and place referral for pulmonary rehab for him. Continue inhalers and medications as at home for diabetes and pulmonary hypertension. INR 3.9 today, will change dose to Coumadin 5 mg PO today and recheck in 2 days.
--- NOTE | 2018-07-17 10:21 | CR ---
AP PORTABLE CHEST, 07/16/18 DATE OF SERVICE: 07/16/18 CLINICAL DATA: Short of breath Comparison made to a prior exam dated 01 June 2017. The heart size is stable. The pulmonary vasculature does appear more prominent than on the prior exam suggesting pulmonary venous congestion or fluid overload. There are interstitial infiltrates throughout both lungs present on the prior exam. Interstitial edema or interstitial pneumonia should be considered. There is increased density in the left lung base and right costophrenic angle consistent with infiltrate or atelectasis. Pneumonia should be considered. There is blunting of both costophrenic angles consistent with small bilateral pleural effusion. Exam is otherwise unchanged from the prior. [id number] MTDD
[2018-07-17] MEDS: Hydrochlorothiazide 12.5 MG Cap PO SCH (10:37)
[2018-07-17] MEDS: Benazepril 40 MG Tab PO SCH (10:37)
[2018-07-17] MEDS: predniSONE 20 MG Tab PO SCH (10:38)
[2018-07-17] MEDS: Albuterol 8 GM Inhaler INH SCH ×2 (10:38→19:10)
[2018-07-17] MEDS: Sildenafil 20 MG Tab PO SCH ×3 (11:07→20:41)
[2018-07-17] MEDS: GLIMEPIRIDE 0.5 MG PO SCH (11:07)
[2018-07-17] MEDS: ARNUITY ELLIPTA INH SCH (15:00)
[2018-07-17] MEDS ORDERED: Warfarin 5 MG Tab PO ONE (18:00)
[2018-07-17] MEDS ORDERED: Warfarin 5 MG Tab PO SCH (18:00)
[2018-07-17] MEDS: Sodium Chloride 0.9% 1,000 ML IV SCH (19:35)
[2018-07-18] MEDS: BOSENTAN 125 MG PO SCH (07:49)
[2018-07-18] MEDS: GLIMEPIRIDE 0.5 MG PO SCH (07:51)
[2018-07-18] MEDS: Aspirin 81 MG Tab.EC PO SCH (07:55)
[2018-07-18] MEDS: metFORMIN 500 MG Tab PO SCH ×2 (07:55→12:20)
[2018-07-18] MEDS: Hydrochlorothiazide 12.5 MG Cap PO SCH (07:56)
[2018-07-18] MEDS ORDERED: Levofloxacin/Dextrose 5%-Water 100 ML IV SCH (08:00)
[2018-07-18] MEDS: Benazepril 40 MG Tab PO SCH (08:00)
[2018-07-18] MEDS: predniSONE 20 MG Tab PO SCH (08:01)
[2018-07-18] MEDS: amLODIPine 10 MG Tab PO SCH (08:01)
[2018-07-18] MEDS: Sildenafil 20 MG Tab PO SCH ×3 (08:03→13:46)
[2018-07-18] MEDS: Simvastatin 40 MG Tab PO SCH (08:04)
[2018-07-18] MEDS: TREPROSTINIL 1.74 MG/2.9 ML INH SCH ×2 (09:00→13:00)
--- NOTE | 2018-07-18 09:54 | PCM.DCSUM1 ---
Discharge Summary - Hospital Course Free Text/Narrative:: Pt presented to emergency room with c/o shortness of breath on 07/16/18 and work up in the emergency showed possible left lower lobe pneumonia. PT was admitted with the diagnosis of pneumonia and hypoxia. Pt was started on Levaquin Iv 500mg daily. Also has been on his home meds and medications. He does have severe pulmonary hypertension. Day 1 has not had any fever, tolerating diet well. Minimal cough. Has had uneventful day. Today, patient claims that he has been feeling well. Has been feeding well. Has very minimal cough with clear sputum. No shortness of breath or wheezing. His white count is down from 13.5K to 8 K. Clinically patient has improved. He does use oxygen at home and is at his base line maintaining SPO2 around 90-91%. Plan is to discharge patient on oral levaquin for total of 10 days.His INR is 5 today, which is secondary to Levaquin, I have advised patient to hold off on Coumadin until Monday. Incentive spirometer exercises 2-3 times daily. Continue home meds. Pt does have pulmonary appointment of Monday at [facility], advised to keep it. Should have his INR done on monday. Followup in clinic early next week. Brief History: Pt presented to emergency room with worsening wheezing and shortness of breath on 07/16/18, and work up showed left lower lobe pneumonia. Admitted to hospital. Kindly see H&P for details. Diagnosis: Stroke: No - Discharge Data Discharge Date: 07/18/18 Discharge Disposition: Home, Self-Care 01 Condition: Fair - Patient Instructions Fluid Restriction: 1500 mL Activity: As Tolerated Showering/Bathing: October Shower - Discharge Plan *PRESCRIPTION DRUG MONITORING PROGRAM REVIEWED*: Not Applicable *COPY OF PRESCRIPTION DRUG MONITORING REPORT IN PATIENT TONY: Not Applicable Home Medications: Home Meds Aspirin [Halfprin] 81 mg PO DAILY 05/30/17 [History] Benazepril/Hydrochlorothiazide [Benazepril-HCTZ 20-12.5 MG] 1 tab PO BID [History] Bosentan [Tracleer] 125 mg PO BID 05/30/17 [History] Glimepiride [Amaryl] 1 mg PO BID 05/30/17 [History] Iloprost Tromethamine [Ventavis] 1 ampule INH 6XDAY 05/30/17 [History] Metoprolol Tartrate [Lopressor] 50 mg PO BID 05/30/17 [History] Sildenafil [Revatio] 20 mg PO TID 05/30/17 [History] Simvastatin [Zocor] 40 mg PO DAILY 05/30/17 [History] amLODIPine [Norvasc] 10 mg PO DAILY 05/30/17 [History] metFORMIN [Glucophage] 1,000 mg PO DAILY 05/30/17 [History] metFORMIN [Glucophage] 500 mg PO 1200 05/30/17 [History] Levofloxacin [Levaquin] 250 mg PO Q24H #6 tablet 06/02/17 [Rx] Warfarin [Coumadin] 5 mg PO SuMoTuWeThSa tablet 06/02/17 [Rx] predniSONE 10 mg PO .Daily Taper #10 tablet 06/02/17 [Rx] Forms: ED Department Discharge Referrals: PCP,None [Primary Care Provider] - - Discharge Summary/Plan Comment DC Time >30 min.: Yes Discharge Summary/Plan Comment: Plan is to discharge patient on oral levaquin for total of 10 days.His INR is 5 today, which is secondary to Levaquin, I have advised patient to hold off on Coumadin until Monday. Incentive spirometer exercises 2-3 times daily. Continue home meds. Pt does have pulmonary appointment of Monday at [facility], advised to keep it. Should have his INR done on monday. Followup in clinic early next week.. - General Info Date of Service: 07/18/18 Functional Status: Reports: Pain Controlled, Tolerating Diet, Ambulating, Urinating, Incentive Spirometry - Review of Systems General: Denies: Fever, Weakness, Fatigue HEENT: Denies: Sinus Congestion, Sore Throat, Rhinitis Pulmonary: Reports: Cough, Sputum. Denies: Shortness of Breath, Hemoptysis Cardiovascular: Denies: Chest Pain, Palpitations, Lightheadedness Gastrointestinal: Denies: Abdominal Pain, Nausea, Vomiting Genitourinary: Denies: Dysuria, Frequency Musculoskeletal: Denies: Joint Pain, Joint Swelling Skin: Denies: Pruritis, Rash Neurological: Denies: Confusion, Dizziness, Headache, Numbness, Tingling Psychiatric: Denies: Confusion, Depression, Mood Lability, Anxiety - Patient Data Vitals - Most Recent: Last Vital Signs Temp 97.7 F 07/18/18 00:12 Pulse 66 07/18/18 00:12 Resp 20 07/18/18 00:12 BP 155/63 H 07/18/18 08:01 Pulse Ox 97 07/18/18 00:12 Weight - Most Recent: 88.541 kg I&O - Last 24 hours: Intake & Output 07/17/18 07/18/18 07/18/18 22:59 06:59 14:59 Intake Total 2550 600 Output Total 900 450 Balance 1650 150 Lab Results - Last 24 hrs: Laboratory Results - last 24 hr 07/18/18 07/18/18 Range/Units 07:45 07:45 WBC 14.0 H D (4.0-11.0) K/uL RBC 3.85 L (4.50-6.50) M/uL Hgb 10.2 L (13.0-18.0) g/dL Hct 33.4 L (40.0-54.0) % MCV 87 (76-96) fL MCH 26.5 L (27.0-32.0) pg MCHC 30.5 L (31.0-35.0) g/dL RDW 15.7 (11.0-16.0) % Plt Count 250 (150-400) K/uL MPV 9.8 (6.0-10.0) fL Neut % (Auto) 87.6 H (45.0-70.0) % Lymph % (Auto) 5.9 L (20.0-40.0) % [place] % (Auto) 5.9 (3.0-10.0) % Eos % (Auto) 0.2 L (1.0-5.0) % Baso % (Auto) 0.4 (0.0-0.5) % Neut # (Auto) 12.27 H (2.00-7.50) K/uL Lymph # (Auto) 0.83 L (1.50-4.00) K/uL [place] # (Auto) 0.83 H (0.20-0.80) K/uL Eos # (Auto) 0.03 L (0.04-0.40) K/uL Baso # (Auto) 0.05 (0.02-0.10) K/uL Sodium 142 (136-145) mmol/L Potassium 4.3 (3.5-5.1) mmol/L Chloride 108 H (98-107) mmol/L Carbon Dioxide 21.8 (21.0-32.0) mmol/L Anion Gap 16.5 H (5.0-15.0) mmol/L BUN 39 H (8-26) mg/dL Creatinine 1.40 H (0.70-1.30) mg/dL Est Cr Clr Drug Dosing TNP Estimated GFR (MDRD) 51 L (>60) MLS/MIN BUN/Creatinine Ratio 27.9 H (6-25) Glucose 94 D (74-100) mg/dL Calcium 8.7 (8.5-10.1) mg/dL [facility] Results - Last 24 hrs: Microbiology 07/16/18 21:30 MRSA Surveillance Culture - Final Nares, Right NO MRSA ISOLATED 07/16/18 20:50 Aerobic Blood Culture - Preliminary Blood NO GROWTH AFTER 1 DAY Anaerobic Blood Culture - Preliminary NO GROWTH AFTER 1 DAY 07/16/18 20:57 Aerobic Blood Culture - Preliminary Blood NO GROWTH AFTER 1 DAY Anaerobic Blood Culture - Preliminary NO GROWTH AFTER 1 DAY Med Orders - Current: Current Medications Albuterol (Ventolin Hfa) 0 gm INH BID [facility] Last Admin: 07/17/18 19:10 Dose: 2 puff Albuterol/Ipratropium (Duoneb 3.0-0.5 Mg/3 Ml) 3 ml NEB Q2H PRN PRN Reason: Respiratory Depression Last Admin: 07/16/18 20:12 Dose: 3 ml Amlodipine Besylate (Norvasc) 10 mg PO DAILY [facility] Last Admin: 07/18/18 08:01 Dose: 10 mg Aspirin (Halfprin) 81 mg PO DAILY [facility] Last Admin: 07/18/18 07:55 Dose: 81 mg Benazepril HCl (Lotensin) 20 mg PO DAILY [facility] Last Admin: 07/18/18 08:00 Dose: 20 mg Hydrochlorothiazide (Hydrochlorothiazide) 12.5 mg PO DAILY [facility] Last Admin: 07/18/18 07:56 Dose: 12.5 mg Sodium Chloride (Normal Saline) 1,000 mls @ 50 mls/hr IV ASDIRECTED [facility] Last Admin: 07/17/18 19:35 Dose: 50 mls/hr Levofloxacin/Dextrose (Levaquin In D5w 500 Mg/100 Ml) 100 mls @ 100 mls/hr IV DAILY [facility] Last Admin: 07/18/18 07:57 Dose: 100 mls/hr Levalbuterol HCl (Xopenex) 1.25 mg NEB Q4HR PRN PRN Reason: Shortness of Breath Metformin HCl (Glucophage) 1,000 mg PO BID [facility] Last Admin: 07/18/18 07:55 Dose: 1,000 mg Metformin HCl (Glucophage) 500 mg PO 1200 [facility] Last Admin: 07/17/18 12:58 Dose: 500 mg Morphine Sulfate (Morphine) 2 mg IVPUSH Q4H PRN PRN Reason: Shortness of Breath Last Admin: 07/16/18 22:47 Dose: 2 mg Non-Formulary Medication (Bosentan [Tracleer]) 125 mg PO BID [facility] Last Admin: 07/18/18 07:49 Dose: 125 mg Non-Formulary Medication (Glimepiride [Amaryl]) 0.5 mg PO DAILY [facility] Last Admin: 07/18/18 07:51 Dose: 0.5 mg Arnuity Ellipta 1 each INH DAILY@1500 [facility] Last Admin: 07/17/18 15:00 Dose: 1 each Non-Formulary Medication (Nf Drug) 0.6 each INH QID [facility] Prednisone (Prednisone) 40 mg PO DAILY [facility] Last Admin: 07/18/18 08:01 Dose: 40 mg Sildenafil Citrate (Revatio) 20 mg PO TID [facility] Last Admin: 07/18/18 08:03 Dose: 20 mg Simvastatin (Zocor) 40 mg PO DAILY [facility] Last Admin: 07/18/18 08:04 Dose: 40 mg Warfarin Sodium (Coumadin) 7.5 mg PO SUTUWETHFRSA [facility] Discontinued Medications Benazepril HCl (Lotensin) Confirm Administered Dose 20 mg .ROUTE .STK-MED ONE Stop: 07/17/18 07:41 Last Admin: 07/17/18 08:27 Dose: 20 mg Hydrochlorothiazide (Hydrochlorothiazide) Confirm Administered Dose 12.5 mg .ROUTE .STK-MED ONE Stop: 07/17/18 07:42 Last Admin: 07/17/18 08:26 Dose: 12.5 mg Levofloxacin 500 mg/ Dextrose/ (Water) 120 mls @ 220 mls/hr IV DAILY [facility] Last Admin: 07/17/18 08:24 Dose: 220 mls/hr Levofloxacin/Dextrose (Levaquin In D5w 500 Mg/100 Ml) Confirm Administered Dose 100 mls @ as directed IV .STK-MED ONE Stop: 07/17/18 07:48 Last Admin: 07/17/18 08:28 Dose: Not Given Methylprednisolone Sodium Succinate (Solu-Medrol) 125 mg IVPUSH ONETIME ONE Stop: 07/16/18 20:03 Last Admin: 07/16/18 20:09 Dose: 125 mg Methylprednisolone Sodium Succinate (Solu-Medrol) 40 mg IVPUSH Q8H [facility] Last Admin: 07/17/18 03:44 Dose: 40 mg Mometasone Furoate/Formoterol Fumar (Dulera 200-5 Mcg) 2 puff IH BID [facility] Last Admin: 07/17/18 00:10 Dose: Not Given Non-Formulary Medication (Benazepril/Hydrochlorothiazide [Benazepril-Hctz 20- 12.5 Mg]) 1 tab PO BID [facility] Last Admin: 07/17/18 08:28 Dose: Not Given Warfarin Sodium (Coumadin) 0.25 mg PO Fr [facility] Warfarin Sodium (Coumadin) 2.5 mg PO DAILY [facility] Warfarin Sodium (Coumadin) 5 mg PO SuMoTuWeThSa [facility] Last Admin: 07/16/18 22:24 Dose: Not Given Warfarin Sodium (Coumadin) 6 mg PO Fr [facility] Warfarin Sodium (Coumadin) 10 mg PO MO [facility] Warfarin Sodium (Coumadin) 5 mg PO ONETIME ONE Stop: 07/17/18 18:01 Last Admin: 07/17/18 17:01 Dose: 5 mg - Exam Quality Assessment: Reports: Supplemental Oxygen General: Reports: Alert, Oriented, Cooperative HEENT: Reports: Pupils Equal, Pupils Reactive, EOMI, Mucous Membr. Moist/[place] Neck: Reports: Supple Lungs: Reports: Clear to Auscultation, Normal Respiratory Effort. Denies: Crackles, Rales, Rhonchi Cardiovascular: Reports: Regular Rate, Regular Rhythm GI/Abdominal Exam: Normal Bowel Sounds, Soft, Non-Tender, No Organomegaly, No Distention, No Abnormal Bruit, No Mass, Pelvis Stable Extremities: Normal Inspection, Normal Range of Motion, Non-Tender, No Pedal Edema Skin: Reports: Warm, Intact
[2018-07-18] MEDS: Albuterol 8 GM Inhaler INH SCH (10:00)
[2018-07-18] MEDS: ARNUITY ELLIPTA INH SCH (14:51)
== END 2018-07-18 17:50 | disposition home or self-care (01) | DRG 194 ==
LOC: LB.ED 19:43 → UNDOADMIN 21:00 → LB.MS 21:00
PROVIDERS: ADMIT Nurse Practitioner Family; ATTEND Nurse Practitioner Family
DX: J18.9 Pneumonia, unspecified organism (principal); J44.0 Chronic obstructive pulmonary disease with (acute) lower respiratory infection; I10 Essential (primary) hypertension; E11.9 Type 2 diabetes mellitus without complications; I25.10 Atherosclerotic heart disease of native coronary artery without angina pectoris; I27.20 Pulmonary hypertension, unspecified; Z99.81 Dependence on supplemental oxygen; R06.02 Shortness of breath; E78.00 Pure hypercholesterolemia, unspecified; I25.2 Old myocardial infarction; H91.90 Unspecified hearing loss, unspecified ear; Z79.82 Long term (current) use of aspirin; Z79.01 Long term (current) use of anticoagulants; Z79.84 Long term (current) use of oral hypoglycemic drugs; Z79.52 Long term (current) use of systemic steroids; Z79.899 Other long term (current) drug therapy; Z79.2 Long term (current) use of antibiotics
CPT/HCPCS: 36415; 71045; 80053; 84484; 85025; 87040 ×2; 96374; 99285; J2930; 80048; 82962; 85610; A0425; A0429; A9270-GY; J1956; J2270; J2920; J7030; J7060; J7620-GY

== ENCOUNTER 2018-09-05 16:28 | Emergency (ER) | payer MEDICARE ==
--- NOTE | 2018-09-05 17:01 | EDM.PDOC ---
ED HPI GENERAL MEDICAL PROBLEM - General Chief Complaint: General Stated Complaint: joint stiffness Time Seen by Provider: 09/05/18 16:45 Source of Information: Reports: Patient History Limitations: Reports: No Limitations - History of Present Illness INITIAL COMMENTS - FREE TEXT/NARRATIVE: This is a 68yo M here for joint pains. He states the joint pains have lasted for the past 9 days. It is worst in the mornings and lasts hours. It improves throughout the day. He denies prior joint complaints. Onset: Gradual Duration: Day(s):, Getting Worse Location: Reports: Back, Upper Extremity, Left, Upper Extremity, Right, Lower Extremity, Left, Lower Extremity, Right, Other (hands, wrists) - Related Data Allergies Allergy/AdvReac Type Severity Reaction Status Date / Time quinine Allergy Rash Verified 07/17/18 12:19 Home Meds: Home Meds Aspirin [Halfprin] 81 mg PO DAILY 05/30/17 [History] Benazepril/Hydrochlorothiazide [Benazepril-HCTZ 20-12.5 MG] 1 tab PO BID [History] Bosentan [Tracleer] 125 mg PO BID 05/30/17 [History] Glimepiride [Amaryl] 1 mg PO BID 05/30/17 [History] Iloprost Tromethamine [Ventavis] 1 ampule INH 6XDAY 05/30/17 [History] Metoprolol Tartrate [Lopressor] 50 mg PO BID 05/30/17 [History] Sildenafil [Revatio] 20 mg PO TID 05/30/17 [History] Simvastatin [Zocor] 40 mg PO DAILY 05/30/17 [History] amLODIPine [Norvasc] 10 mg PO DAILY 05/30/17 [History] metFORMIN [Glucophage] 1,000 mg PO DAILY 05/30/17 [History] metFORMIN [Glucophage] 500 mg PO 1200 05/30/17 [History] Levofloxacin [Levaquin] 250 mg PO Q24H #6 tablet 06/02/17 [Rx] Warfarin [Coumadin] 5 mg PO SuMoTuWeThSa tablet 06/02/17 [Rx] predniSONE 10 mg PO .Daily Taper #10 tablet 06/02/17 [Rx] Past Medical History HEENT History: Reports: Other (See Below) Other HEENT History: Somewhat [place]. Cardiovascular History: Reports: CAD, High Cholesterol, Hypertension, [place] Respiratory History: Reports: COPD Gastrointestinal History: Reports: GERD Genitourinary History: Reports: Acute Renal Failure Psychiatric History: Reports: Anxiety Endocrine/Metabolic History: Reports: Diabetes, Type II Social & Family History - Family History Family Medical History: Noncontributory - Caffeine Use Caffeine Use: Reports: None ED ROS GENERAL - Review of Systems Review Of Systems: ROS reveals no pertinent complaints other than HPI. ED EXAM, GENERAL - Physical Exam Exam: See Below Exam Limited By: No Limitations General Appearance: Alert, WD/WN, No Apparent Distress Eye Exam: Bilateral Eye: EOMI, PERRL Ears: Normal External Exam Nose: Normal Inspection Throat/Mouth: Normal Inspection Head: Atraumatic, Normocephalic Neck: Normal Inspection, Supple, Non-Tender Respiratory/Chest: Decreased Breath Sounds, Rhonchi Cardiovascular: Normal Peripheral Pulses, Regular Rate, Rhythm Peripheral Pulses: 2+: Dorsalis Pedis (L), Dorsalis Pedis (R) GI/Abdominal: Normal Bowel Sounds Extremities: Normal Inspection Neurological: Alert, Oriented, CN II-XII Intact Psychiatric: Normal Affect, Normal Mood Skin Exam: Warm, Dry, Intact Course - Orders/Labs/Meds Orders: Active Orders 24 hr Category Date Time Status BOYD W/RFX TO ALL IF POSITIVE Stat Lab 09/05/18 16:52 Ordered BASIC METABOLIC PANEL,BMP [CHEM] Stat Lab 09/05/18 16:52 Ordered C-REACTIVE PROTEIN HIGH SENSI [CHEM] Stat Lab 09/05/18 16:52 Ordered CBC WITH AUTO DIFF [HEME] Stat Lab 09/05/18 16:52 Ordered CCP ANTIBODIES IGG/IGA Stat Lab 09/05/18 16:52 Ordered SEDIMENTATION RATE MANUAL [HEME] Stat Lab 09/05/18 16:52 Ordered TSH ULTRASENSITIVE [CHEM] Stat Lab 09/05/18 16:52 Ordered URIC ACID [CHEM] Stat Lab 09/05/18 16:52 Ordered Ketorolac [Toradol] Med 09/05/18 16:56 Once 60 mg IM ONETIME ONE methylPREDNISolone Sod Succ [Solu-MEDROL] Med 09/05/18 16:57 Once 125 mg IM ONETIME ONE Departure - Departure Time of Disposition: 17:30 Disposition: Home, Self-Care 01 Condition: Fair Clinical Impression: Generalized joint pain - Discharge Information Instructions: Prednisone tablets Referrals: PCP,Unknown [Primary Care Provider] - Additional Instructions: Take Prednisone as prescribed - Problem List & Annotations (1) Generalized joint pain SNOMED Code(s): 30039083 Code(s): M25.50 - PAIN IN UNSPECIFIED JOINT Status: Acute Priority: High Current Visit: Yes - Problem List Review Problem List Initiated/Reviewed/Updated: Yes - My Orders Last 24 Hours: My Active Orders 09/05/18 16:52 BOYD W/RFX TO ALL IF POSITIVE Stat BASIC METABOLIC PANEL,BMP [CHEM] Stat C-REACTIVE PROTEIN HIGH SENSI [CHEM] Stat CBC WITH AUTO DIFF [HEME] Stat CCP ANTIBODIES IGG/IGA Stat SEDIMENTATION RATE MANUAL [HEME] Stat TSH ULTRASENSITIVE [CHEM] Stat URIC ACID [CHEM] Stat 09/05/18 16:56 Ketorolac [Toradol] 60 mg IM ONETIME ONE 09/05/18 16:57 methylPREDNISolone Sod Succ [Solu-MEDROL] 125 mg IM ONETIME ONE - Assessment/Plan Last 24 Hours: My Active Orders 09/05/18 16:52 BOYD W/RFX TO ALL IF POSITIVE Stat BASIC METABOLIC PANEL,BMP [CHEM] Stat C-REACTIVE PROTEIN HIGH SENSI [CHEM] Stat CBC WITH AUTO DIFF [HEME] Stat CCP ANTIBODIES IGG/IGA Stat SEDIMENTATION RATE MANUAL [HEME] Stat TSH ULTRASENSITIVE [CHEM] Stat URIC ACID [CHEM] Stat 09/05/18 16:56 Ketorolac [Toradol] 60 mg IM ONETIME ONE 09/05/18 16:57 methylPREDNISolone Sod Succ [Solu-MEDROL] 125 mg IM ONETIME ONE Plan: Counseled on labs to be done. Discussed f/u results with PCP and in clinic in 1 week. Discussed f/u as needed if symptoms persist or worsen. Discussed trial of prednisone burst and close monitoring of joint concerns. Rtc as directed and in ER as needed.
[2018-09-05] MEDS: methylPREDNISolone Sodium Succinate 125 MG/2 ML SDV IM ONE (17:09)
[2018-09-05] MEDS: Ketorolac 60 MG/2 ML SDV IM ONE (17:12)
[2018-09-05] MEDS: methylPREDNISolone Sodium Succinate 125 MG/2 ML SDV ONE (17:16)
[2018-09-05] MEDS: Ketorolac 60 MG/2 ML SDV ONE (17:16)
== END 2018-09-05 18:27 | disposition home or self-care (01) ==
LOC: LB.ED 16:32
DX: M25.532 Pain in left wrist (principal); M25.531 Pain in right wrist; M54.9 Dorsalgia, unspecified; M79.602 Pain in left arm; M79.601 Pain in right arm; M79.605 Pain in left leg; M79.604 Pain in right leg; I10 Essential (primary) hypertension; I25.2 Old myocardial infarction; E78.00 Pure hypercholesterolemia, unspecified; I25.10 Atherosclerotic heart disease of native coronary artery without angina pectoris; J44.9 Chronic obstructive pulmonary disease, unspecified; F41.9 Anxiety disorder, unspecified; M25.50 Pain in unspecified joint; E11.9 Type 2 diabetes mellitus without complications; Z79.82 Long term (current) use of aspirin; Z79.899 Other long term (current) drug therapy; Z88.8 Allergy status to other drugs, medicaments and biological substances; Z79.84 Long term (current) use of oral hypoglycemic drugs
CPT/HCPCS: 36415; 80048; 84443; 84550; 85025; 85651; 86141; 86200; 86431; 96372; 99283; J1885; J2930

== ENCOUNTER 2018-09-05 22:25 | Inpatient (IN) | payer MEDICARE ==
[2018-09-05] MEDS ORDERED: Furosemide 20 MG/2 ML VIAL IVPUSH ONE ×2 (23:20→23:45)
[2018-09-05] MEDS ORDERED: Morphine 2 MG/ML Syringe IVPUSH ONE ×2 (23:20→23:45)
--- NOTE | 2018-09-05 23:45 | EDM.PDOC ---
ED HPI GENERAL MEDICAL PROBLEM - General Chief Complaint: General Stated Complaint: INCREASED SHORTNESS OF BREATH Time Seen by Provider: 09/05/18 23:15 Source of Information: Reports: Patient, Family History Limitations: Reports: Respiratory Distress - History of Present Illness INITIAL COMMENTS - FREE TEXT/NARRATIVE: This is a 68yo M here for shortness of breath that started about 9pm. He states he was feeling well today and his joints were feeling better and went out for [employer]. He ate more tonight than he has in the past and had a big mac and fries. He states he called his family around 9pm when he felt short of breath and his oxygen went down to 80%. He tried to move and go to the bathroom and his oxygen dropped to 60's and his family called EMS. He was brought in on 25L and his oxygen remained around the mid 60's. He denies any chest pain or other concerns. Onset: Sudden Duration: Minutes:, Getting Worse Location: Reports: Chest Severity: Severe Improves with: Reports: None Worsens with: Reports: Movement Associated Symptoms: Reports: Shortness of Breath - Related Data Allergies Allergy/AdvReac Type Severity Reaction Status Date / Time quinine Allergy Rash Verified 09/06/18 04:24 Home Meds: Home Meds Aspirin [Halfprin] 81 mg PO DAILY 05/30/17 [History] Benazepril/Hydrochlorothiazide [Benazepril-HCTZ 20-12.5 MG] 1 tab PO BID [History] Bosentan [Tracleer] 125 mg PO BID 05/30/17 [History] Glimepiride [Amaryl] 1 mg PO DAILY 05/30/17 [History] Metoprolol Tartrate [Lopressor] 50 mg PO BID 05/30/17 [History] Sildenafil [Revatio] 20 mg PO TID 05/30/17 [History] amLODIPine [Norvasc] 10 mg PO DAILY 05/30/17 [History] metFORMIN [Glucophage] 1,000 mg PO BID 05/30/17 [History] metFORMIN [Glucophage] 500 mg PO 1200 05/30/17 [History] Warfarin [Coumadin] 5 mg PO SuMoTuWeThSa tablet 06/02/17 [Rx] predniSONE 10 mg PO .Daily Taper #10 tablet 06/02/17 [Rx] Albuterol [Ventolin HFA] 2 inhalation IH BID 09/06/18 [History] Fluticasone Furoate [Arnuity Ellipta] 1 inh IN DAILY 09/06/18 [History] Treprostinil [Tyvaso] 1 ampule INH QID 09/06/18 [History] atorvaSTATin Calcium [Atorvastatin Calcium] 20 mg PO DAILY 09/06/18 [History] Past Medical History HEENT History: Reports: Other (See Below) Other HEENT History: Somewhat [place]. Cardiovascular History: Reports: CAD, High Cholesterol, Hypertension, [place] Respiratory History: Reports: COPD Gastrointestinal History: Reports: GERD Genitourinary History: Reports: Acute Renal Failure Psychiatric History: Reports: Anxiety Endocrine/Metabolic History: Reports: Diabetes, Type II Social & Family History - Family History Family Medical History: Noncontributory - Caffeine Use Caffeine Use: Reports: None ED ROS GENERAL - Review of Systems Review Of Systems: ROS reveals no pertinent complaints other than HPI. ED EXAM, GENERAL - Physical Exam Exam: See Below Exam Limited By: Respiratory Distress General Appearance: Alert, WD/WN, Mild Distress, Moderate Distress Eye Exam: Bilateral Eye: EOMI, PERRL Ears: Normal External Exam Nose: Normal Inspection Throat/Mouth: Normal Inspection Head: Atraumatic, Normocephalic Neck: Normal Inspection, Supple, Non-Tender, Full Range of Motion Respiratory/Chest: Respiratory Distress, Decreased Breath Sounds, Crackles, Rales, Rhonchi, Wheezing Cardiovascular: Normal Peripheral Pulses, Regular Rate, Rhythm, No Edema Peripheral Pulses: 2+: Dorsalis Pedis (L), Dorsalis Pedis (R) GI/Abdominal: Normal Bowel Sounds Back Exam: Normal Inspection Extremities: Normal Inspection, Normal Range of Motion Neurological: Alert, Oriented Psychiatric: Normal Affect, Normal Mood Skin Exam: Warm, Dry, Intact Course - Vital Signs Last Recorded V/S: Last Vital Signs Temp 36.3 C 09/06/18 09:00 Pulse 86 09/06/18 09:00 Resp 16 09/06/18 09:00 BP 147/74 H 09/06/18 09:00 Pulse Ox 90 L 09/06/18 09:00 - Orders/Labs/Meds Orders: Active Orders 24 hr Category Date Time Status RT Aerosol Therapy [RC] ASDIRECTED Care 09/06/18 00:01 Active Albuterol/Ipratropium [DuoNeb 3.0-0.5 MG/3 ML] Med 09/06/18 00:01 Active 3 ml NEB Q2H PRN Medication Orders Albuterol/Ipratropium (Duoneb 3.0-0.5 Mg/3 Ml) 3 ml NEB Q2H PRN PRN Reason: Shortness of Breath Last Admin: 09/06/18 09:00 Dose: 3 ml Admin: 09/06/18 00:27 Dose: 3 ml Aspirin (Halfprin) 81 mg PO DAILY@1200 [facility] Benazepril HCl (Lotensin) 20 mg PO BID [facility] Furosemide (Lasix) 40 mg IVPUSH BID [facility] Last Admin: 09/06/18 08:45 Dose: 40 mg Hydrochlorothiazide (Hydrochlorothiazide) 12.5 mg PO BID [facility] Metformin HCl (Glucophage) 500 mg PO 1200 [facility] Metformin HCl (Glucophage) 1,000 mg PO DAILY [facility] Last Admin: 09/06/18 10:53 Dose: 1,000 mg Metoprolol Tartrate (Lopressor) 50 mg PO BID [facility] Non-Formulary Medication (Bosentan [Tracleer]) 125 mg PO BID [facility] Non-Formulary Medication (Glimepiride [Amaryl]) 1 mg PO BID [facility] Tyvaso 0.6mg/Ml (Ampule) 1 ampule INH QID [facility] Ondansetron HCl (Zofran) 4 mg IV Q4H PRN PRN Reason: Nausea/Vomiting Sildenafil Citrate (Revatio) 20 mg PO TID [facility] Simvastatin (Zocor) 40 mg PO DAILY [facility] Sodium Chloride (Saline Flush) 10 ml FLUSH ASDIRECTED PRN PRN Reason: Keep Vein Open Last Admin: 09/06/18 10:57 Dose: 10 ml Warfarin Sodium (Coumadin) 5 mg PO SuMoTuWeThSa@1800 [facility] Labs: Laboratory Tests 09/05/18 Range/Units 23:50 Sodium 142 (136-145) mmol/L Potassium 5.2 H (3.5-5.1) mmol/L Chloride 105 (98-107) mmol/L Carbon Dioxide 17.7 L (21.0-32.0) mmol/L Anion Gap 24.5 H (5.0-15.0) mmol/L BUN 37 H D (8-26) mg/dL Creatinine 1.91 H D (0.70-1.30) mg/dL Est Cr Clr Drug Dosing TNP Estimated GFR (MDRD) 35 L (>60) MLS/MIN BUN/Creatinine Ratio 19.4 (6-25) Glucose 304 H D (74-100) mg/dL Calcium 8.7 D (8.5-10.1) mg/dL Troponin I 0.035 D (0.000-0.060) ng/mL B-Natriuretic Peptide 1118 H D (0-125) pg/mL Meds: Medications Generic Name Dose Route Start Last Admin Trade Name Freq PRN Reason Stop Dose Admin Albuterol/Ipratropium 3 ml 09/06/18 00:01 09/06/18 09:00 Duoneb 3.0-0.5 Mg/3 Ml NEB 3 ml Q2H PRN Administration Shortness of Breath Aspirin 81 mg 09/07/18 12:00 Halfprin PO DAILY@1200 [facility] Benazepril HCl 20 mg 09/06/18 20:00 Lotensin PO BID [facility] Furosemide 40 mg 09/06/18 08:00 09/06/18 08:45 Lasix IVPUSH 40 mg BID [place] Administration Hydrochlorothiazide 12.5 mg 09/06/18 20:00 Hydrochlorothiazide PO BID [facility] Metformin HCl 500 mg 09/06/18 12:00 Glucophage PO 1200 [facility] Metformin HCl 1,000 mg 09/07/18 08:00 09/06/18 10:53 Glucophage PO 1,000 mg DAILY [place] Administration Metoprolol Tartrate 50 mg 09/06/18 20:00 Lopressor PO BID [facility] Non-Formulary Medication 125 mg 09/06/18 20:00 Bosentan [Tracleer] PO BID [facility] Non-Formulary Medication 1 mg 09/06/18 20:00 Glimepiride [Amaryl] PO BID [facility] Tyvaso 0.6mg/Ml 1 ampule 09/06/18 12:00 Ampule INH QID [facility] Ondansetron HCl 4 mg 09/06/18 00:46 Zofran IV Q4H PRN Nausea/Vomiting Sildenafil Citrate 20 mg 09/06/18 14:00 Revatio PO TID [facility] Simvastatin 40 mg 09/07/18 08:00 Zocor PO DAILY [facility] Sodium Chloride 10 ml 09/06/18 00:46 09/06/18 10:57 Saline Flush FLUSH 10 ml ASDIRECTED PRN Administration Keep Vein Open Warfarin Sodium 5 mg 09/06/18 18:00 Coumadin PO SuMoTuWeThSa@1800 [facility] Discontinued Medications Generic Name Dose Route Start Last Admin Trade Name Kevin PRN Reason Stop Dose Admin Furosemide 20 mg 09/05/18 23:45 09/05/18 23:38 Lasix IVPUSH 09/05/18 23:46 20 mg ONETIME ONE Administration Furosemide 20 mg 09/05/18 23:20 09/05/18 23:24 Lasix IVPUSH 09/05/18 23:21 20 mg ONETIME ONE Administration Furosemide 20 mg 09/06/18 00:02 09/06/18 00:30 Lasix IVPUSH 09/06/18 00:03 20 mg ONETIME ONE Administration Methylprednisolone Sodium Succinate 125 mg 09/06/18 09:43 09/06/18 09:00 Solu-Medrol IVPUSH 09/06/18 09:44 125 mg ONETIME ONE Administration Morphine Sulfate 1 mg 09/05/18 23:45 09/05/18 23:37 Morphine IVPUSH 09/05/18 23:46 1 mg ONETIME ONE Administration Morphine Sulfate 1 mg 09/05/18 23:20 09/05/18 23:23 Morphine IVPUSH 09/05/18 23:21 1 mg ONETIME ONE Administration Warfarin Sodium 5 mg 09/06/18 09:45 Coumadin PO SuMoTuWeThSa [facility] Departure - Departure Time of Disposition: 01:30 Disposition: Admitted As Inpatient 68 Condition: Poor Clinical Impression: Acute respiratory failure with hypoxia, Pulmonary hypertension, Shortness of breath - Discharge Information - Problem List & Annotations (1) Acute respiratory failure with hypoxia SNOMED Code(s): 94151857, 237104614 Code(s): J96.01 - ACUTE RESPIRATORY FAILURE WITH HYPOXIA Status: Acute Priority: High Current Visit: Yes (2) Pulmonary hypertension SNOMED Code(s): 26475287 Code(s): I27.20 - PULMONARY HYPERTENSION, UNSPECIFIED Status: Chronic Priority: High Current Visit: Yes (3) Shortness of breath SNOMED Code(s): 466095496 Code(s): R06.02 - SHORTNESS OF BREATH Status: Acute Priority: High Current Visit: Yes - Problem List Review Problem List Initiated/Reviewed/Updated: Yes - My Orders Last 24 Hours: My Active Orders 09/06/18 00:01 RT Aerosol Therapy [RC] ASDIRECTED Albuterol/Ipratropium [DuoNeb 3.0-0.5 MG/3 ML] 3 ml NEB Q2H PRN - Assessment/Plan Last 24 Hours: My Active Orders 09/06/18 00:01 RT Aerosol Therapy [RC] ASDIRECTED Albuterol/Ipratropium [DuoNeb 3.0-0.5 MG/3 ML] 3 ml NEB Q2H PRN Plan: Patient admitted to critical care bed for acute respiratory failure with hypoxia. Critical time spent 90 minutes. Patient placed on BIPAP and high flow oxygen. Patient likely has pulmonary edema where the lasix has improved his symptoms. We are monitoring his condition carefully and closely watching lasix use due to his Pulmonary HTN. We will continue current respiratory care in the unit with humidified oxygen. Labs to be repeated in AM.
[2018-09-06] MEDS ORDERED: Furosemide 20 MG/2 ML VIAL IVPUSH ONE (00:02)
[2018-09-06] MEDS: Albuterol/Ipratropium 3.0-0.5 MG/3 ML Neb Soln NEB PRN ×2 (00:27→09:00)
[2018-09-06] MEDS ORDERED: Sodium Chloride 0.9% 10 ML Syringe FLUSH PRN (00:46)
[2018-09-06] MEDS ORDERED: Ondansetron 4 MG/2 ML SDV IV PRN (00:46)
[2018-09-06] MEDS: Furosemide 40 MG/4 ML VIAL IVPUSH SCH ×2 (08:45→19:29)
[2018-09-06] MEDS ORDERED: methylPREDNISolone Sodium Succinate 125 MG/2 ML SDV IVPUSH ONE (09:43)
--- NOTE | 2018-09-06 09:44 | PCM.PN ---
- General Info Date of Service: 09/06/18 Subjective Update: Patient has improved symptoms of breathing but is not back to his baseline. He states he feels the shortness of breath and notices his oxygen drops very quickly when he gets up or moves. He uses 10 L at home all the time and when he has to move or go to the bathroom he uses 15-20L. Patient appears in mild distress but has improved greatly from yesterday. - Review of Systems General: Reports: Weakness, Fatigue HEENT: Reports: No Symptoms Pulmonary: Reports: Shortness of Breath Cardiovascular: Reports: No Symptoms Gastrointestinal: Reports: No Symptoms Genitourinary: Reports: No Symptoms Musculoskeletal: Reports: No Symptoms Skin: Reports: No Symptoms Neurological: Reports: Weakness Psychiatric: Reports: No Symptoms - Patient Data Vitals - Most Recent: Last Vital Signs Temp 36.6 C 09/06/18 05:00 Pulse 69 09/06/18 05:00 Resp 18 09/06/18 05:00 BP 113/59 L 09/06/18 05:00 Pulse Ox 92 L 09/06/18 05:00 Weight - Most Recent: 87.685 kg I&O - Last 24 Hours: Intake & Output 09/05/18 09/06/18 09/06/18 22:59 06:59 14:59 Intake Total 60 Output Total 275 Balance -215 Lab Results Last 24 Hours: Laboratory Results - last 24 hr 09/05/18 09/06/18 09/06/18 Range/Units 23:50 07:10 07:10 WBC 15.3 H D (4.0-11.0) K/uL RBC 4.05 L (4.50-6.50) M/uL Hgb 10.7 L (13.0-18.0) g/dL Hct 34.5 L (40.0-54.0) % MCV 85 (76-96) fL MCH 26.4 L (27.0-32.0) pg MCHC 31.0 (31.0-35.0) g/dL RDW 17.3 H (11.0-16.0) % Plt Count 327 (150-400) K/uL MPV 9.7 (6.0-10.0) fL Neut % (Auto) 93.6 H (45.0-70.0) % Lymph % (Auto) 2.3 L (20.0-40.0) % Stephens % (Auto) 3.9 (3.0-10.0) % Eos % (Auto) 0.1 L (1.0-5.0) % Baso % (Auto) 0.1 (0.0-0.5) % Neut # (Auto) 14.31 H (2.00-7.50) K/uL Lymph # (Auto) 0.35 L (1.50-4.00) K/uL Stephens # (Auto) 0.60 (0.20-0.80) K/uL Eos # (Auto) 0.01 L (0.04-0.40) K/uL Baso # (Auto) 0.02 (0.02-0.10) K/uL Sodium 142 144 (136-145) mmol/L Potassium 5.2 H 5.3 H (3.5-5.1) mmol/L Chloride 105 107 (98-107) mmol/L Carbon Dioxide 17.7 L 17.9 L (21.0-32.0) mmol/L Anion Gap 24.5 H 24.4 H (5.0-15.0) mmol/L BUN 37 H D 42 H (8-26) mg/dL Creatinine 1.91 H D 1.95 H (0.70-1.30) mg/dL Est Cr Clr Drug Dosing TNP TNP Estimated GFR (MDRD) 35 L 35 L (>60) MLS/MIN BUN/Creatinine Ratio 19.4 21.5 (6-25) Glucose 304 H D 128 H D (74-100) mg/dL Calcium 8.7 D 8.2 L (8.5-10.1) mg/dL Magnesium 1.5 L (1.8-2.4) mg/dL Total Bilirubin 0.4 D (0.0-1.0) mg/dL AST 18 (15-37) U/L ALT 24 (12-78) U/L Alkaline Phosphatase 63 (46-116) U/L Troponin I 0.035 D (0.000-0.060) ng/mL B-Natriuretic Peptide 1118 H D (0-125) pg/mL Total Protein 6.5 (6.4-8.2) g/dL Albumin 3.3 L (3.4-5.0) g/dL Globulin 3.2 (2.2-4.2) g/dL Albumin/Globulin Ratio 1.0 (0.8-2.0) Med Orders - Current: Current Medications Albuterol/Ipratropium (Duoneb 3.0-0.5 Mg/3 Ml) 3 ml NEB Q2H PRN PRN Reason: Shortness of Breath Last Admin: 09/06/18 00:27 Dose: 3 ml Aspirin (Halfprin) 81 mg PO DAILY [facility] Furosemide (Lasix) 40 mg IVPUSH BID [facility] Metformin HCl (Glucophage) 500 mg PO 1200 [facility] Metformin HCl (Glucophage) 1,000 mg PO DAILY [facility] Metoprolol Tartrate (Lopressor) 50 mg PO BID [facility] Non-Formulary Medication (Benazepril/Hydrochlorothiazide [Benazepril-Hctz 20- 12.5 Mg]) 1 tab PO BID [facility] Non-Formulary Medication (Bosentan [Tracleer]) 125 mg PO BID [facility] Non-Formulary Medication (Glimepiride [Amaryl]) 1 mg PO BID [facility] Non-Formulary Medication (Iloprost Tromethamine [Ventavis]) 1 ampule INH 6XDAY [facility] Ondansetron HCl (Zofran) 4 mg IV Q4H PRN PRN Reason: Nausea/Vomiting Sildenafil Citrate (Revatio) 20 mg PO TID [facility] Simvastatin (Zocor) 40 mg PO DAILY [facility] Sodium Chloride (Saline Flush) 10 ml FLUSH ASDIRECTED PRN PRN Reason: Keep Vein Open Warfarin Sodium (Coumadin) 5 mg PO [place] [facility] Discontinued Medications Furosemide (Lasix) 20 mg IVPUSH ONETIME ONE Stop: 09/05/18 23:46 Last Admin: 09/05/18 23:38 Dose: 20 mg Furosemide (Lasix) 20 mg IVPUSH ONETIME ONE Stop: 09/05/18 23:21 Last Admin: 09/05/18 23:24 Dose: 20 mg Furosemide (Lasix) 20 mg IVPUSH ONETIME ONE Stop: 09/06/18 00:03 Last Admin: 09/06/18 00:30 Dose: 20 mg Morphine Sulfate (Morphine) 1 mg IVPUSH ONETIME ONE Stop: 09/05/18 23:46 Last Admin: 09/05/18 23:37 Dose: 1 mg Morphine Sulfate (Morphine) 1 mg IVPUSH ONETIME ONE Stop: 09/05/18 23:21 Last Admin: 09/05/18 23:23 Dose: 1 mg - Exam Quality Assessment: Supplemental Oxygen General: Alert, Oriented, Cooperative HEENT: Pupils Equal, Pupils Reactive, EOMI Neck: Supple Lungs: Decreased Breath Sounds, Rales, Rhonchi Cardiovascular: Regular Rate, Regular Rhythm GI/Abdominal Exam: Normal Bowel Sounds, Soft, Non-Tender Back Exam: Normal Inspection Extremities: Normal Inspection Peripheral Pulses: 2+: Dorsalis Pedis (L), Dorsalis Pedis (R) Skin: Warm, Dry, Intact Neurological: No New Focal Deficit Psy/Mental Status: Alert, Normal Affect, Normal Mood - Problem List & Annotations (1) Acute respiratory failure with hypoxia SNOMED Code(s): 20576226, 884119547 Code(s): J96.01 - ACUTE RESPIRATORY FAILURE WITH HYPOXIA Status: Acute Priority: High Current Visit: Yes (2) Shortness of breath SNOMED Code(s): 941343257 Code(s): R06.02 - SHORTNESS OF BREATH Status: Acute Priority: High Current Visit: Yes (3) Pulmonary hypertension SNOMED Code(s): 83635726 Code(s): I27.20 - PULMONARY HYPERTENSION, UNSPECIFIED Status: Chronic Priority: High Current Visit: Yes - Problem List Review Problem List Initiated/Reviewed/Updated: Yes - My Orders Last 24 Hours: My Active Orders 09/05/18 23:42 Chest 1V Frontal [CR] Stat 09/06/18 00:01 RT Aerosol Therapy [RC] ASDIRECTED Albuterol/Ipratropium [DuoNeb 3.0-0.5 MG/3 ML] 3 ml NEB Q2H PRN 09/06/18 00:46 Patient Status [ADT] Routine Bedrest Bedside Commode [RC] ASDIRECTED Oxygen Therapy [RC] 0000 VTE/DVT Education [RC] Per Unit Routine Vital Signs [RC] Q4H Ondansetron [Zofran] 4 mg IV Q4H PRN Sodium Chloride 0.9% [Saline Flush] 10 ml FLUSH ASDIRECTED PRN Peripheral IV Insertion Adult [OM.PC] Routine Resuscitation Status Routine 09/06/18 00:50 Pulse Oximetry [RC] CONTINUOUS 09/06/18 00:55 Urinary Catheter Assessment [RC] 06,18 09/06/18 01:00 Insert Paiz Catheter [Insert Urinary Catheter] [OM.PC] Q24H 09/06/18 08:00 Furosemide [Lasix] 40 mg IVPUSH BID 09/06/18 09:43 methylPREDNISolone Sod Succ [Solu-MEDROL] 125 mg IVPUSH ONETIME ONE 09/06/18 09:45 Warfarin [Coumadin] 5 mg PO SuMoTuWeThSa 09/06/18 10:00 Chest 1V Frontal [CR] Routine 09/06/18 12:00 Iloprost Tromethamine [Ventavis] 1 ampule INH 6XDAY metFORMIN [Glucophage] 500 mg PO 1200 09/06/18 14:00 Sildenafil [Revatio] 20 mg PO TID 09/06/18 20:00 Benazepril/Hydrochlorothiazide [Benazepril-HCTZ 20-12.5 MG] 1 tab PO BID Bosentan [Tracleer] 125 mg PO BID Glimepiride [Amaryl] 1 mg PO BID Metoprolol Tartrate [Lopressor] 50 mg PO BID 09/06/18 Breakfast 2 Gram Sodium Diet [DIET] 09/07/18 08:00 Aspirin [Halfprin] 81 mg PO DAILY Simvastatin [Zocor] 40 mg PO DAILY metFORMIN [Glucophage] 1,000 mg PO DAILY - Plan Plan:: Patient will start weaning from high oxygen supplementation. We will continually monitor oxygen saturation with a very slow wean to baseline of 10L ideally. Patient agrees with plan of care. He continually drops to the low 60's with exertion and even getting up to go to the bathroom with a slow recovery. Patient notes his oxygen does not normally drop this quickly and recovers much quicker than it has here in the hospital. Repeat labs in am and continue lasix with close monitoring of BP and consideration of Pulmonary HTN.
[2018-09-06] MEDS ORDERED: Warfarin 5 MG Tab PO SCH ×2 (09:45→18:00)
[2018-09-06] MEDS: metFORMIN 500 MG Tab PO SCH ×2 (10:53→12:33)
--- NOTE | 2018-09-06 10:55 | CR ---
DATE OF SERVICE: 09/05/18 CLINICAL DATA: shortness of breath PA CHEST: Comparison is made to a prior exam dated 07/16/18. The heart size is stable. The patient has taken a poor inspiration. There are interstitial infiltrates throughout both lungs with progression from the prior study. The pulmonary vascular also appears more prominent than the prior exam. This may be accentuated by the poor inspiration. There are densities in both lung bases consistent with basilar atelectasis or infiltrate. Pneumonia should be considered. There is blunting of both costophrenic angles consistent with small bilateral pleural effusions. The exam is otherwise unchanged from the prior. [id number] [facility]
--- NOTE | 2018-09-06 11:25 | CR ---
Date of Service: 09/06/18 Clinical Data: Shortness of Breath AP CHEST: Comparison made to a prior exam dated 09/05/18. The patient has taken better inspiration. The heart size is normal. The interstitial infiltrates throughout both lungs on the prior exam have nearly completely resolved. Both lung bases are clearer than on the prior study. There is slight blunting of the left costophrenic angle consistent with small left pleural effusion. The exam is otherwise unchanged. No new abnormalities. [id number] [facility]
[2018-09-06] MEDS ORDERED: Aspirin 81 MG Tab.EC ONE (12:44)
[2018-09-06] MEDS: Aspirin 81 MG Tab.EC PO SCH (12:45)
[2018-09-06] MEDS: TYVASO 0.6 MG/ML INH SCH ×3 (13:12→21:35)
[2018-09-06] MEDS: Sildenafil 20 MG Tab PO SCH ×2 (14:28→19:48)
[2018-09-06] MEDS: TREPROSTINIL INH SCH (18:00)
[2018-09-06] MEDS: GLIMEPIRIDE 1 MG PO SCH (19:31)
[2018-09-06] MEDS: Hydrochlorothiazide 12.5 MG Cap PO SCH (19:32)
[2018-09-06] MEDS: BOSENTAN 125 MG PO SCH (19:35)
[2018-09-06] MEDS: Metoprolol Tartrate 50 MG Tab PO SCH (19:36)
[2018-09-06] MEDS: Albuterol 8 GM Inhaler INH SCH (19:39)
[2018-09-06] MEDS: Benazepril 10 MG Tab PO SCH (19:43)
[2018-09-06] MEDS ORDERED: Calcium Carbonate 500 MG Tab.Chew ONE (21:13)
[2018-09-07] MEDS ORDERED: Simvastatin 40 MG Tab PO SCH (08:00)
[2018-09-07] MEDS ORDERED: atorvaSTATin 20 MG Tab PO SCH (08:00)
[2018-09-07] MEDS ORDERED: Mometasone Furoate Powder 220 MCG/Puff 14 Dose Inhaler INH SCH (08:00)
[2018-09-07] MEDS ORDERED: methylPREDNISolone Sodium Succinate 40 MG/1 ML SDV IVPUSH SCH (08:00)
[2018-09-07] MEDS: metFORMIN 500 MG Tab PO SCH ×2 (08:17→12:33)
[2018-09-07] MEDS: GLIMEPIRIDE 1 MG PO SCH (08:19)
[2018-09-07] MEDS: Hydrochlorothiazide 12.5 MG Cap PO SCH (08:19)
[2018-09-07] MEDS: Sildenafil 20 MG Tab PO SCH ×2 (08:20→14:57)
[2018-09-07] MEDS: Benazepril 10 MG Tab PO SCH (08:20)
[2018-09-07] MEDS: Furosemide 40 MG/4 ML VIAL IVPUSH SCH (08:30)
[2018-09-07] MEDS: BOSENTAN 125 MG PO SCH (08:40)
[2018-09-07] MEDS: TREPROSTINIL INH SCH ×2 (08:41→14:57)
[2018-09-07] MEDS: TYVASO 0.6 MG/ML INH SCH ×2 (08:56→14:57)
[2018-09-07] MEDS: Albuterol 8 GM Inhaler INH SCH (09:16)
--- NOTE | 2018-09-07 12:12 | PCM.DCSUM1 ---
Discharge Summary - Discharge Data Discharge Date: 09/07/18 Discharge Disposition: Home, Self-Care 01 Condition: Fair - Discharge Diagnosis/Problem(s) (1) Acute respiratory failure with hypoxia SNOMED Code(s): 05319927, 383851403 ICD Code: J96.01 - ACUTE RESPIRATORY FAILURE WITH HYPOXIA Status: Acute Priority: High Current Visit: Yes (2) Shortness of breath SNOMED Code(s): 681432563 ICD Code: R06.02 - SHORTNESS OF BREATH Status: Acute Priority: High Current Visit: Yes (3) Pulmonary hypertension SNOMED Code(s): 27120755 ICD Code: I27.20 - PULMONARY HYPERTENSION, UNSPECIFIED Status: Chronic Priority: High Current Visit: Yes (4) Pulmonary edema, acute SNOMED Code(s): 97466817 ICD Code: J81.0 - ACUTE PULMONARY EDEMA Status: Resolved Priority: High Current Visit: Yes - Patient Instructions Diet: Usual Diet as Tolerated Activity: As Tolerated Driving: Do Not Drive - Discharge Plan Home Medications: Home Meds Aspirin [Halfprin] 81 mg PO DAILY 05/30/17 [History] Benazepril/Hydrochlorothiazide [Benazepril-HCTZ 20-12.5 MG] 1 tab PO BID [History] Bosentan [Tracleer] 125 mg PO BID 05/30/17 [History] Glimepiride [Amaryl] 1 mg PO DAILY 05/30/17 [History] Metoprolol Tartrate [Lopressor] 50 mg PO BID 05/30/17 [History] Sildenafil [Revatio] 20 mg PO TID 05/30/17 [History] amLODIPine [Norvasc] 10 mg PO DAILY 05/30/17 [History] metFORMIN [Glucophage] 1,000 mg PO BID 05/30/17 [History] metFORMIN [Glucophage] 500 mg PO 1200 05/30/17 [History] Warfarin [Coumadin] 5 mg PO [id number] tablet 06/02/17 [Rx] predniSONE 10 mg PO .Daily Taper #10 tablet 06/02/17 [Rx] Albuterol [Ventolin HFA] 2 inhalation IH BID 09/06/18 [History] Fluticasone Furoate [Arnuity Ellipta] 1 inh IN DAILY 09/06/18 [History] Treprostinil [Tyvaso] 1 ampule INH QID 09/06/18 [History] atorvaSTATin Calcium [Atorvastatin Calcium] 20 mg PO DAILY 09/06/18 [History] Benazepril [Lotensin] 20 mg PO BID tablet 09/07/18 [Rx] Iloprost Tromethamine [Ventavis] 1 ampule INH QID 09/07/18 [Rx] hydroCHLOROthiazide [Hydrochlorothiazide] 12.5 mg PO BID cap 09/07/18 [Rx] Forms: ED Department Discharge Referrals: PCP,None [Primary Care Provider] - - Discharge Summary/Plan Comment DC Time >30 min.: Yes Discharge Summary/Plan Comment: Patient counseled extensively on discharge instructions. Discussed use of oxygen and taking time for movement and recovery. Discussed order change with [facility] to use of oxygen from 8L-20L. Patient to f/u in clinic in 1-2 weeks and as needed. Discussed close monitoring care and f/u. - General Info Date of Service: 09/07/18 Subjective Update: Patient doing well and weaned to baseline 10L oxygen [place]. Patient continues to drop to 70's with exertion but this is his baseline. He drops quicker and takes longer for recover but overall has been doing well. Functional Status: Reports: Tolerating Diet, Ambulating - Review of Systems General: Reports: Weakness, Fatigue HEENT: Reports: No Symptoms Pulmonary: Reports: Shortness of Breath Cardiovascular: Reports: No Symptoms Gastrointestinal: Reports: No Symptoms Genitourinary: Reports: No Symptoms Musculoskeletal: Reports: No Symptoms Skin: Reports: No Symptoms - Patient Data Vitals - Most Recent: Last Vital Signs Temp 36.4 C 09/07/18 07:56 Pulse 53 L 09/07/18 07:56 Resp 22 H 09/07/18 07:56 BP 119/58 L 09/07/18 08:20 Pulse Ox 93 L 09/07/18 07:56 Weight - Most Recent: 87.685 kg I&O - Last 24 hours: Intake & Output 09/06/18 09/07/18 09/07/18 22:59 06:59 14:59 Intake Total 150 Output Total 1850 1450 Balance -1850 150 -1450 Lab Results - Last 24 hrs: Laboratory Results - last 24 hr 09/07/18 09/07/18 Range/Units 07:35 07:35 WBC 14.1 H (4.0-11.0) K/uL RBC 3.68 L (4.50-6.50) M/uL Hgb 9.8 L (13.0-18.0) g/dL Hct 31.1 L (40.0-54.0) % MCV 85 (76-96) fL MCH 26.6 L (27.0-32.0) pg MCHC 31.5 (31.0-35.0) g/dL RDW 17.0 H (11.0-16.0) % Plt Count 293 (150-400) K/uL MPV 9.2 (6.0-10.0) fL Neut % (Auto) 85.3 H (45.0-70.0) % Lymph % (Auto) 7.6 L (20.0-40.0) % [place] % (Auto) 6.5 (3.0-10.0) % Eos % (Auto) 0.4 L (1.0-5.0) % Baso % (Auto) 0.2 (0.0-0.5) % Neut # (Auto) 12.07 H (2.00-7.50) K/uL Lymph # (Auto) 1.07 L (1.50-4.00) K/uL [place] # (Auto) 0.92 H (0.20-0.80) K/uL Eos # (Auto) 0.05 (0.04-0.40) K/uL Baso # (Auto) 0.03 (0.02-0.10) K/uL Sodium 143 (136-145) mmol/L Potassium 4.0 D (3.5-5.1) mmol/L Chloride 106 (98-107) mmol/L Carbon Dioxide 25.9 D (21.0-32.0) mmol/L Anion Gap 15.1 H (5.0-15.0) mmol/L BUN 49 H (8-26) mg/dL Creatinine 1.53 H D (0.70-1.30) mg/dL Est Cr Clr Drug Dosing TNP Estimated GFR (MDRD) 46 L (>60) MLS/MIN BUN/Creatinine Ratio 32.0 H (6-25) Glucose 90 (74-100) mg/dL Calcium 8.7 (8.5-10.1) mg/dL Med Orders - Current: Current Medications Albuterol (Ventolin Hfa) 0 gm INH BID [facility] Last Admin: 09/07/18 09:16 Dose: 2 puff Albuterol/Ipratropium (Duoneb 3.0-0.5 Mg/3 Ml) 3 ml NEB Q2H PRN PRN Reason: Shortness of Breath Last Admin: 09/06/18 09:00 Dose: 3 ml Aspirin (Halfprin) 81 mg PO DAILY@1200 [facility] Last Admin: 09/06/18 12:45 Dose: 81 mg Atorvastatin Calcium (Lipitor) 20 mg PO DAILY [facility] Benazepril HCl (Lotensin) 20 mg PO BID [facility] Last Admin: 09/07/18 08:20 Dose: 20 mg Furosemide (Lasix) 40 mg IVPUSH BID [facility] Last Admin: 09/07/18 08:30 Dose: 40 mg Hydrochlorothiazide (Hydrochlorothiazide) 12.5 mg PO BID [facility] Last Admin: 09/07/18 08:19 Dose: 12.5 mg Metformin HCl (Glucophage) 500 mg PO 1200 [facility] Last Admin: 09/06/18 12:33 Dose: 500 mg Metformin HCl (Glucophage) 1,000 mg PO DAILY [facility] Last Admin: 09/07/18 08:17 Dose: 1,000 mg Methylprednisolone Sodium Succinate (Solu-Medrol) 40 mg IVPUSH Q12H [facility] Last Admin: 09/07/18 08:28 Dose: 40 mg Metoprolol Tartrate (Lopressor) 50 mg PO BID [facility] Last Admin: 09/06/18 19:36 Dose: 50 mg Mometasone Furoate (Asmanex 220 Mcg) 0 puff INH DAILY [facility] Non-Formulary Medication (Bosentan [Tracleer]) 125 mg PO BID [facility] Last Admin: 09/07/18 08:40 Dose: 125 mg Non-Formulary Medication (Glimepiride [Amaryl]) 1 mg PO BID [facility] Last Admin: 09/07/18 08:19 Dose: 1 mg Tyvaso 0.6mg/Ml (Ampule) 1 ampule INH QID [facility] Last Admin: 09/06/18 21:35 Dose: 1 ampule Non-Formulary Medication (Treprostinil [Tyvaso]) 1 ampule INH QID [facility] Last Admin: 09/07/18 08:41 Dose: 1 ampule Ondansetron HCl (Zofran) 4 mg IV Q4H PRN PRN Reason: Nausea/Vomiting Sildenafil Citrate (Revatio) 20 mg PO TID [facility] Last Admin: 09/07/18 08:20 Dose: 20 mg Simvastatin (Zocor) 40 mg PO DAILY [facility] Last Admin: 09/07/18 08:35 Dose: Not Given Sodium Chloride (Saline Flush) 10 ml FLUSH ASDIRECTED PRN PRN Reason: Keep Vein Open Last Admin: 09/06/18 10:57 Dose: 10 ml Warfarin Sodium (Coumadin) 5 mg PO SuMoTuWeThSa@1800 [facility] Last Admin: 09/06/18 17:40 Dose: 5 mg Discontinued Medications Aspirin (Halfprin) Confirm Administered Dose 81 mg .ROUTE .STK-MED ONE Stop: 09/06/18 12:45 Last Admin: 09/06/18 13:12 Dose: Not Given Calcium Carbonate/Glycine (Tums) Confirm Administered Dose 500 mg .ROUTE .STK- MED ONE Stop: 09/06/18 21:14 Last Admin: 09/06/18 21:00 Dose: 500 mg Furosemide (Lasix) 20 mg IVPUSH ONETIME ONE Stop: 09/05/18 23:46 Last Admin: 09/05/18 23:38 Dose: 20 mg Furosemide (Lasix) 20 mg IVPUSH ONETIME ONE Stop: 09/05/18 23:21 Last Admin: 09/05/18 23:24 Dose: 20 mg Furosemide (Lasix) 20 mg IVPUSH ONETIME ONE Stop: 09/06/18 00:03 Last Admin: 09/06/18 00:30 Dose: 20 mg Methylprednisolone Sodium Succinate (Solu-Medrol) 125 mg IVPUSH ONETIME ONE Stop: 09/06/18 09:44 Last Admin: 09/06/18 09:00 Dose: 125 mg Morphine Sulfate (Morphine) 1 mg IVPUSH ONETIME ONE Stop: 09/05/18 23:46 Last Admin: 09/05/18 23:37 Dose: 1 mg Morphine Sulfate (Morphine) 1 mg IVPUSH ONETIME ONE Stop: 09/05/18 23:21 Last Admin: 09/05/18 23:23 Dose: 1 mg Warfarin Sodium (Coumadin) 5 mg PO SuMoTuWeThSa [place] Last Admin: 09/06/18 12:27 Dose: Not Given - Exam Quality Assessment: Reports: Supplemental Oxygen General: Reports: Alert, Oriented, Cooperative HEENT: Reports: Pupils Equal, Pupils Reactive, EOMI Neck: Reports: Supple Lungs: Reports: Decreased Breath Sounds, Rhonchi Cardiovascular: Reports: Regular Rate, Regular Rhythm GI/Abdominal Exam: Normal Bowel Sounds Back Exam: Reports: Normal Inspection Extremities: Normal Inspection Skin: Reports: Warm, Dry, Intact Neurological: Reports: No New Focal Deficit Psy/Mental Status: Reports: Alert, Normal Affect, Normal Mood
[2018-09-07] MEDS: Metoprolol Tartrate 50 MG Tab PO SCH (12:33)
[2018-09-07] MEDS: Aspirin 81 MG Tab.EC PO SCH (12:33)
== END 2018-09-07 14:20 | disposition home or self-care (01) | DRG 189 ==
LOC: LB.ED 22:25 → LB.MS 09-06 00:46
PROVIDERS: ADMIT Family Medicine; ATTEND Family Medicine
DX: J96.01 Acute respiratory failure with hypoxia (principal); J81.0 Acute pulmonary edema; I27.20 Pulmonary hypertension, unspecified; I10 Essential (primary) hypertension; E11.9 Type 2 diabetes mellitus without complications; J44.9 Chronic obstructive pulmonary disease, unspecified; Z99.81 Dependence on supplemental oxygen; Z79.82 Long term (current) use of aspirin; Z79.01 Long term (current) use of anticoagulants; Z79.84 Long term (current) use of oral hypoglycemic drugs; R09.02 Hypoxemia; Z88.8 Allergy status to other drugs, medicaments and biological substances; R06.02 Shortness of breath; I25.10 Atherosclerotic heart disease of native coronary artery without angina pectoris; I25.2 Old myocardial infarction; E78.00 Pure hypercholesterolemia, unspecified; K21.9 Gastro-esophageal reflux disease without esophagitis; F41.9 Anxiety disorder, unspecified; H91.90 Unspecified hearing loss, unspecified ear; Z79.52 Long term (current) use of systemic steroids
CPT/HCPCS: 36415; 51702; 71045; 80048; 80053; 83735; 83880; 84443; 84484; 84550; 85025; 85651; 86038; 86141; 86200; 86431; 86618; 96372; 96374; 96375; 99283; 99285-25; A0425; A0429; A9270-GY; J1885; J1940; J2270; J2920; J2930; J7620-GY

== ENCOUNTER 2018-11-21 09:58 | Emergency (ER) | payer MEDICARE ==
[2018-11-21] MEDS: Sodium Chloride 0.9% 1,000 ML IV ONE ×3 (10:03→11:19)
[2018-11-21] MEDS ORDERED: EPINEPHrine 1:10,000 1 MG/10 ML Syringe IVPUSH ONE ×5 (10:11→10:39)
[2018-11-21] MEDS ORDERED: Amiodarone 150 MG in Dextrose 5% in Water 100 ML IV SCH ×2 (10:16)
[2018-11-21] MEDS ORDERED: cefTRIAXone 2 GM in Sodium Chloride 0.9% 50 ML IV ONE (10:28)
[2018-11-21] MEDS ORDERED: methylPREDNISolone Sodium Succinate 125 MG/2 ML SDV IM ONE (10:32)
[2018-11-21] MEDS ORDERED: methylPREDNISolone Sodium Succinate 125 MG/2 ML SDV ONE (10:39)
[2018-11-21] MEDS ORDERED: Midazolam 1 MG/ML 2 ML SDV IVPUSH ONE ×2 (11:04→11:06)
[2018-11-21] MEDS ORDERED: methylPREDNISolone Sodium Succinate 125 MG/2 ML SDV IVPUSH ONE (11:05)
[2018-11-21] MEDS ORDERED: Midazolam 1 MG/ML 10 ML MDV IVPUSH ONE (11:06)
[2018-11-21] MEDS ORDERED: fentaNYL 250 MCG/5 ML SDV IVPUSH ONE (11:12)
[2018-11-21] MEDS ORDERED: Rocuronium 50 MG/5 ML Vial IV ONE (11:13)
[2018-11-21] MEDS ORDERED: Midazolam 1 MG/ML 5 ML SDV IVPUSH ONE (11:13)
--- NOTE | 2018-11-21 11:24 | EDM.PDOC ---
ED HPI GENERAL MEDICAL PROBLEM - General Chief Complaint: Respiratory Problem Stated Complaint: ILL Time Seen by Provider: 11/21/18 09:58 Source of Information: Reports: EMS, RN History Limitations: Reports: Altered Mental Status, Respiratory Distress, Other (unresponsive) - History of Present Illness INITIAL COMMENTS - FREE TEXT/NARRATIVE: 68 Yr old male presents to ER via EMS. Brother called ambulance and pt reported fever and SOB for 2-3 days. Hx of Pulmonary Hypertension and end Stage COPD and diabetes, mcfp coumadin use. EMS reports pt was in/out of consciousness on transfer to the facility. He was shaking at home, possible sepsis. Pt was intubated per Dr Agee and code called. No pulse noted. CPR in progress, Johnson started, Monitor with PEA, continued epinephrine and CPR, and return of pulse and ventricular tachycardia was noted and Amiodarone given IV and IV drip started. ET tube placement checked per x-ray and corrected. Rocephin 2 gm IV given, Solumedrol 125 mg IV given. PEA returned and Amiodarone checked and unkinked tube, CPR was restarted and Epi repeated. Return of NSR. ET tube continues and ambu bag. Pt occasional resistance to ambu bag, Versed 8 mg IV given and Ricardo. 8 mg IV given and Fentanyl 12.5 mcq IV given. Remains in NSR current pulse of 70, BP of 135/70. SpO2=79%. Total of Epi 5 doses given. Flight crew here 11:20. Family has been notified and was present to discuss with MD and talk to pt. Pt remains unresponsive, pupils unresponsive. - Related Data Allergies Allergy/AdvReac Type Severity Reaction Status Date / Time quinine Allergy Rash Verified 09/06/18 04:24 Home Meds: Home Meds Aspirin [Halfprin] 81 mg PO DAILY 05/30/17 [History] Benazepril/Hydrochlorothiazide [Benazepril-HCTZ 20-12.5 MG] 1 tab PO BID [History] Bosentan [Tracleer] 125 mg PO BID 05/30/17 [History] Glimepiride [Amaryl] 1 mg PO DAILY 05/30/17 [History] Metoprolol Tartrate [Lopressor] 50 mg PO BID 05/30/17 [History] Sildenafil [Revatio] 20 mg PO TID 05/30/17 [History] amLODIPine [Norvasc] 10 mg PO DAILY 05/30/17 [History] metFORMIN [Glucophage] 1,000 mg PO BID 05/30/17 [History] metFORMIN [Glucophage] 500 mg PO 1200 05/30/17 [History] Warfarin [Coumadin] 5 mg PO SuMoTuWeThSa tablet 06/02/17 [Rx] predniSONE 10 mg PO .Daily Taper #10 tablet 06/02/17 [Rx] Albuterol [Ventolin HFA] 2 inhalation IH BID 09/06/18 [History] Fluticasone Furoate [Arnuity Ellipta] 1 inh IN DAILY 09/06/18 [History] Treprostinil [Tyvaso] 1 ampule INH QID 09/06/18 [History] atorvaSTATin Calcium [Atorvastatin Calcium] 20 mg PO DAILY 09/06/18 [History] Benazepril [Lotensin] 20 mg PO BID tablet 09/07/18 [Rx] Iloprost Tromethamine [Ventavis] 1 ampule INH QID 09/07/18 [Rx] hydroCHLOROthiazide [Hydrochlorothiazide] 12.5 mg PO BID cap 09/07/18 [Rx] Past Medical History HEENT History: Reports: Other (See Below) Other HEENT History: Somewhat [place]. Cardiovascular History: Reports: CAD, High Cholesterol, Hypertension, [place] Respiratory History: Reports: COPD Gastrointestinal History: Reports: GERD Genitourinary History: Reports: Acute Renal Failure Psychiatric History: Reports: Anxiety Endocrine/Metabolic History: Reports: Diabetes, Type II - Infectious Disease History Infectious Disease History: Reports: Chicken Pox Social & Family History - Family History Family Medical History: Noncontributory - Caffeine Use Caffeine Use: Reports: None ED ROS GENERAL - Review of Systems Review Of Systems: See Below Constitutional: Reports: ROS unobtainable Respiratory: Reports: Other (respiratory arrest) Cardiovascular: Reports: Other ED EXAM, GENERAL - Physical Exam Exam: See Below Exam Limited By: Other (unresponsive) General Appearance: Other (pupils nonreactive) Head: Atraumatic, Normocephalic Respiratory/Chest: Other (no respirations on admit to ER) Cardiovascular: No Edema, Other (No palpable pulse on admit to ER) Neurological: Unresponsive Skin Exam: Warm, Dry Course - Orders/Labs/Meds Orders: Active Orders 24 hr Category Date Time Status EKG Documentation Completion [RC] ASDIRECTED Care 11/21/18 10:08 Active Labs: Laboratory Tests 11/21/18 11/21/18 11/21/18 Range/Units 10:08 10:08 10:09 WBC 15.0 H (4.0-11.0) K/uL RBC 3.91 L (4.50-6.50) M/uL Hgb 10.8 L (13.0-18.0) g/dL Hct 35.9 L (40.0-54.0) % MCV 92 (76-96) fL MCH 27.6 (27.0-32.0) pg MCHC 30.1 L (31.0-35.0) g/dL RDW 18.7 H (11.0-16.0) % Plt Count 166 D (150-400) K/uL MPV 10.7 H (6.0-10.0) fL Neut % (Auto) 81.1 H (45.0-70.0) % Lymph % (Auto) 12.2 L (20.0-40.0) % [place] % (Auto) 5.3 (3.0-10.0) % Eos % (Auto) 1.2 (1.0-5.0) % Baso % (Auto) 0.2 (0.0-0.5) % Neut # (Auto) 12.17 H (2.00-7.50) K/uL Lymph # (Auto) 1.83 (1.50-4.00) K/uL [place] # (Auto) 0.79 (0.20-0.80) K/uL Eos # (Auto) 0.18 (0.04-0.40) K/uL Baso # (Auto) 0.03 (0.02-0.10) K/uL ABG pH (7.35-7.45) ABG pCO2 (35-45) mmHg ABG pO2 (80-105) mmHg ABG HCO3 (22-26) mmol/L ABG O2 Saturation (95-98) % ABG Base Excess (-2-2) Elvin Test O2 Delivery Device Sodium 141 (136-145) mmol/L Potassium 4.3 (3.5-5.1) mmol/L Chloride 103 (98-107) mmol/L Carbon Dioxide 13.7 L* D (21.0-32.0) mmol/L Anion Gap 28.6 H (5.0-15.0) mmol/L BUN 44 H (8-26) mg/dL Creatinine 2.26 H D (0.70-1.30) mg/dL Est Cr Clr Drug Dosing TNP Estimated GFR (MDRD) 29 L (>60) MLS/MIN BUN/Creatinine Ratio 19.5 (6-25) Glucose 303 H D (74-100) mg/dL Calcium 8.8 (8.5-10.1) mg/dL Total Bilirubin 0.4 D (0.0-1.0) mg/dL AST 37 (15-37) U/L ALT 48 (12-78) U/L Alkaline Phosphatase 91 (46-116) U/L Troponin I 0.052 D (0.000-0.060) ng/mL Total Protein 5.5 L (6.4-8.2) g/dL Albumin 2.6 L (3.4-5.0) g/dL Globulin 2.9 (2.2-4.2) g/dL Albumin/Globulin Ratio 0.9 (0.8-2.0) 11/21/18 Range/Units 10:30 WBC (4.0-11.0) K/uL RBC (4.50-6.50) M/uL Hgb (13.0-18.0) g/dL Hct (40.0-54.0) % MCV (76-96) fL MCH (27.0-32.0) pg MCHC (31.0-35.0) g/dL RDW (11.0-16.0) % Plt Count (150-400) K/uL MPV (6.0-10.0) fL Neut % (Auto) (45.0-70.0) % Lymph % (Auto) (20.0-40.0) % [place] % (Auto) (3.0-10.0) % Eos % (Auto) (1.0-5.0) % Baso % (Auto) (0.0-0.5) % Neut # (Auto) (2.00-7.50) K/uL Lymph # (Auto) (1.50-4.00) K/uL [place] # (Auto) (0.20-0.80) K/uL Eos # (Auto) (0.04-0.40) K/uL Baso # (Auto) (0.02-0.10) K/uL ABG pH 6.91 L* (7.35-7.45) ABG pCO2 58 H* (35-45) mmHg ABG pO2 71 L (80-105) mmHg ABG HCO3 12 L (22-26) mmol/L ABG O2 Saturation 79 L (95-98) % ABG Base Excess -21 L (-2-2) Elvin Test no O2 Delivery Device Trach mask Sodium (136-145) mmol/L Potassium (3.5-5.1) mmol/L Chloride (98-107) mmol/L Carbon Dioxide (21.0-32.0) mmol/L Anion Gap (5.0-15.0) mmol/L BUN (8-26) mg/dL Creatinine (0.70-1.30) mg/dL Est Cr Clr Drug Dosing Estimated GFR (MDRD) (>60) MLS/MIN BUN/Creatinine Ratio (6-25) Glucose (74-100) mg/dL Calcium (8.5-10.1) mg/dL Total Bilirubin (0.0-1.0) mg/dL AST (15-37) U/L ALT (12-78) U/L Alkaline Phosphatase (46-116) U/L Troponin I (0.000-0.060) ng/mL Total Protein (6.4-8.2) g/dL Albumin (3.4-5.0) g/dL Globulin (2.2-4.2) g/dL Albumin/Globulin Ratio (0.8-2.0) Meds: Medications Discontinued Medications Generic Name Dose Route Start Last Admin Trade Name Freq PRN Reason Stop Dose Admin Fentanyl 12.5 mcg 11/21/18 11:12 Sublimaze IVPUSH 11/21/18 11:13 ONETIME ONE Ceftriaxone Sodium 2 gm/ 50 mls @ 200 mls/hr 11/21/18 10:28 Sodium Chloride IV 11/21/18 10:42 ONETIME ONE Azithromycin 500 mg/ Sodium 250 mls @ 250 mls/hr 11/21/18 11:28 Chloride IV 11/21/18 12:27 ONETIME ONE Methylprednisolone Sodium Succinate 125 mg 11/21/18 10:32 Solu-Medrol IM 11/21/18 10:33 ONETIME ONE Methylprednisolone Sodium Succinate Confirm 11/21/18 10:39 Solu-Medrol Administered 11/21/18 10:40 Dose 125 mg .ROUTE .STK-MED ONE Midazolam HCl 8 mg 11/21/18 11:13 Versed 1 Mg/Ml IVPUSH 11/21/18 11:14 ONETIME ONE Rocuronium [place] 8 mg 11/21/18 11:13 Zemuron IV 11/21/18 11:14 ONETIME ONE - Re-Assessments/Exams Free Text/Narrative Re-Assessment/Exam: 11/21/18 17:24 LE 10:03 Code blue called and Pt intubated per Dr Agee at 10:04. and airway maintained per staff. Pulseless v-tachy noted and epinephrine given, CPR started, Johnson started. 10:19 Amiodarone 150 mg IV given X1 and Amiodarone IV drip started 1mg/min. CPR continues, with pulse check, no shock advised. Epinephrine X 5 doses given periodically through code status every 5 minutes. 10:24 strong pulse noted, CPR stopped 10:27 EKG done with Afib and ventricular fib. Possible sepsis, COPD exacerbation: 10:31 Solumedrol 125mg IV given. 10:34 Rocephin 2 gm IV given. [facility] flight crew enroute 10:35 no pulse 10:36 Amiodarone drip restart, 10:38 epi repeat, CPR restarted 10:40 Pulse check with return of strong pulse. CPR stopped, continue with airway, ambu. SpO2=89%, Pulse 110, ET tube placement verified per chest x-ray 10:44 EKG repeat Freq PVC, RBBB. 11:04 Pt starting to respond slightly and slight fight of ET tube. Versed 8 mg IV given 11:06 Vecuronium 8 mg IV given. 11:08 Fentanyl 12.5 MCG IV given. 11:15 pulse check strong. 11:18 Flight crew present and take over care. Departure - Departure Time of Disposition: 11:20 Disposition: DC/Tfer to Acute Hospital 02 Condition: Critical Clinical Impression: Acute respiratory failure with hypoxia, Pulseless ventricular tachycardia, Unresponsive, History of pulmonary hypertension, History of COPD, History of diabetes mellitus, type II, Anticoagulant long-term use - Discharge Information *PRESCRIPTION DRUG MONITORING PROGRAM REVIEWED*: Not Applicable *COPY OF PRESCRIPTION DRUG MONITORING REPORT IN PATIENT TONY: Not Applicable Referrals: PCP,None [Primary Care Provider] - Forms: ED Department Discharge - My Orders Last 24 Hours: My Active Orders 11/21/18 10:08 EKG Documentation Completion [RC] ASDIRECTED - Assessment/Plan Last 24 Hours: My Active Orders 11/21/18 10:08 EKG Documentation Completion [RC] ASDIRECTED Plan: Transfer to [facility], Dr Cecil MD via [employer] flight crew.
[2018-11-21] MEDS ORDERED: Azithromycin 500 MG in Sodium Chloride 0.9% 250 ML IV ONE (11:28)
--- NOTE | 2018-11-21 11:32 | CR ---
DATE OF SERVICE: 11/21/18 CLINICAL DATA: UNRESPONSIVE PORTABLE AP CHEST: The exam is underpenetrated. Comparison is made to a prior exam dated 09/12/18. There is an endotracheal tube in place. Its distal tip is in the right main stem bronchus. The lungs appear clear. No pneumothorax. The heart size is normal. [id number] [facility]
--- NOTE | 2018-11-21 11:35 | CR ---
DATE OF SERVICE: 11/21/18 CLINICAL DATA: LINE PLACEMENT PORTABLE CHEST: Comparison is made to a prior exam from earlier. The endotracheal tube has been repositioned. Its distal tip now lies just above the tory. There is artifact obscuring the majority of both lungs and the heart. No pneumothorax identified. [id number] [facility]
[2018-11-22] MEDS ORDERED: EPINEPHrine 1:10,000 1 MG/10 ML Syringe IVPUSH ONE (10:20)
[2018-11-22] MEDS: Sodium Chloride 0.9% 1,000 ML IV ONE (11:10)
== END 2018-11-21 11:53 ==
LOC: LB.ED 09:58
DX: J96.01 Acute respiratory failure with hypoxia (principal); I47.2 Ventricular tachycardia; J44.9 Chronic obstructive pulmonary disease, unspecified; E11.9 Type 2 diabetes mellitus without complications; Z79.01 Long term (current) use of anticoagulants; Z86.79 Personal history of other diseases of the circulatory system; I10 Essential (primary) hypertension; I25.2 Old myocardial infarction; K21.9 Gastro-esophageal reflux disease without esophagitis; Z79.84 Long term (current) use of oral hypoglycemic drugs; Z79.82 Long term (current) use of aspirin; Z79.899 Other long term (current) drug therapy; Z88.8 Allergy status to other drugs, medicaments and biological substances
CPT/HCPCS: 31500; 36415; 36600; 71045; 80053; 82803; 84484; 85025; 92950; 93005; 96374; 96375; 99285; A0425; A0429; J0171; J0282; J0696; J2250; J2930; J3010; J7030; J7050; J7060; J3490